=== PATIENT | male | born 1975 | race Caucasian/White ===

== ENCOUNTER 2016-12-10 21:13 | Day surgery (SDC) | payer OTHER ==
[~2016-12-10] VITALS: Ht 175.3 cm; Wt 93.9 kg
[~2016-12-10 21:13] MED LIST: ACHD5005 PO; CEPH500C PO; HYOS0.1217 PO; ONDAN4ODT PO; TRAM100T2 PO; TRAZ150T42 PO
[2016-12-10] MEDS ORDERED: METOPROLOL (22:19)
[2016-12-10] MEDS ORDERED: BUSPAR (22:19)
[2016-12-10 22:39] LABS: BILIRUBIN,URINE NEGATIVE (NEGATIVE); KETONES,URINE NEGATIVE (NEGATIVE); LEUKOCYTE ESTERASE ,URINE NEGATIVE (NEGATIVE); NITRITE,URINE NEGATIVE (NEGATIVE); PH,URINE 5 (5-9); PROTEIN,URINE NEGATIVE (NEGATIVE); UROBILINOGEN,URINE NORMAL (NORMAL)
[2016-12-10 22:48] LABS: WBC,URINE RARE /HPF
[2016-12-10 22:48] LABS: BASOPHILS % (AUTO) 0 % (0-10); EOSINOPHILS % (AUTO) 0 % (0-10); LYMPHOCYTES # (AUTO) 1.9 X 10^3 (1.0-4.0); LYMPHOCYTES % (AUTO) 15 % (12-44); MEAN CORPUSCULAR HEMOGLOBIN 31 PG (25-34); MEAN CORPUSCULAR HGB CONC 36 G/DL (32-36); MEAN CORPUSCULAR VOLUME 86 FL (80-99); MONOCYTES # (AUTO) 1.1 X 10^3 (0.0-1.0); MONOCYTES % (AUTO) 9 % (0-12); NEUTROPHILS # (AUTO) 9.3 X 10^3 (1.8-7.8); NEUTROPHILS % (AUTO) 75 % (42-75); PLATELET COUNT 213 10^3/uL (130-400); RED CELL DISTRIBUTION WIDTH 13.2 % (10.0-14.5); WHITE BLOOD COUNT 12.4 10^3/uL (4.3-11.0)
--- NOTE | 2016-12-10 22:53 | ED GU-Male ---
General Chief Complaint: Abdominal/GI Problems Stated Complaint: STOMACH PAIN Nursing Triage Note: PT TO ED 8 W/ C/O UMBILICAL PAIN RADIATING TO RLQ ONSET X2-3 DAYS, WORSE TODAY. DENIES N/V/D Source: patient Exam Limitations: no limitations History of Present Illness Time seen by provider: 22:53 Initial Comments 41-year-old male patient presents to the emergency department complaints of right lower quadrant pain with onset 2-3 days ago. Reports initially pain began as periumbilical pain. Worse today. Denies nausea, vomiting, diarrhea, melena, hematochezia. Denies fever or chills. NPO since 1999. Timing/Duration: getting worse, other (2-3 day onset) Severity/Quality: aching Location: RLQ Radiation: none Activities at Onset: none Prior Genitourinary Problems: none Sexual Tavares History: less than 2 months ago, single partner Modifying Factors: Worsens With Movement, Worsens With Palpation Allergies and Home Medications Allergies Coded Allergies: No Known Drug Allergies (Unverified , 11/05/11) Home Medications Buspirone HCl 15 Mg Tablet, 15 MG PO BID, (Reported) Docusate Sodium 100 Mg Capsule, 100 MG PO BID, #60 Prescribed by: YUKI SIERRA on 12/11/16 1026 Hydrocodone/Acetaminophen 1 Each Tablet, 1 TAB PO Q4H PRN, #30 Ref 0 Prescribed by: YUKI SIERRA on 12/11/16 1026 Metoprolol Succinate 25 Mg Tab.er.24h, 12.5 MG PO HS, (Reported) TAKES 1/2 (25MG) TABLET [place] 3 Polyunsat Fatty Acids 1,000 Mg Cap, 1,000 MG PO BID, (Reported) Trazodone HCl 100 Mg Tablet, 100 MG PO HS, (Reported) Constitutional: No chills, No fever, No malaise Respiratory: no symptoms reported Cardiovascular: no symptoms reported Gastrointestinal: RLQ, see HPI, abdominal pain (RLQ), No constipation, No diarrhea, loss of appetite, No nausea, No vomiting Genitourinary: denies burning, denies discharge, denies dysuria, denies frequency, denies flank pain, denies pain Musculoskeletal: no symptoms reported Skin: no symptoms reported Psychiatric/Neurological: No Symptoms Reported All Other Systemes Reviewed Negative Unless Noted: Yes (Negative excepted noted.) Past Biqevpw-Vpogfv-Ahfafj Hx Patient Social History Alcohol Use: Denies Use Recreational Drug Use: No Smoking Status: Never a Smoker Recent Foreign Travel: No Contact w/Someone Who Travel: No Recent Infectious Disease Expo: No Recent Hopitalizations: No Immunizations Up To Date Date of Influenza Vaccine: Jun 15, 2011 Surgeries HX Surgeries: Yes (carpal tunnel, PARTIAL FINGER AMPUTATION) Respiratory Hx Respiratory Disorders: No Cardiovascular Hx Cardiac Disorders: No Neurological Hx Neurological Disorders: No Genitourinary Hx Genitourinary Disorders: No Gastrointestinal Hx Gastrointestinal Disorders: No Musculoskeletal Hx Musculoskeletal Disorders: No Endocrine Hx Endocrine Disorders: No Cancer Hx Cancer: No Psychosocial Hx Psychiatric Problems: Yes Behavioral Health Disorders: Sleep Difficulties, Anxiety Integumentary HX Skin/Integumentary Disorder: No Blood Transfusions Hx Blood Disorders: No Reviewed Nursing Assessment Reviewed/Agree w Nursing PMH: Yes Family Medical History Significant Family History: No Pertinent Family Hx Physical Exam Vital Signs Vital Sign - Last 12Hours 12/10/16 22:08 Temp 97.2 Pulse 78 Resp 20 B/P (MAP) 118/86 Pulse Ox 97 O2 Delivery Room Air Capillary Refill : Less Than 3 Seconds General Appearance: WD/WN, no apparent distress HEENT: PERRL/EOMI, pharynx normal Neck: supple, normal inspection Cardiovascular: normal peripheral pulses, regular rate, rhythm, no murmur Respiratory: lungs clear, normal breath sounds, no respiratory distress Gastrointestinal: normal bowel sounds, soft, no organomegaly, No distended, guarding (RLQ), rebound (RLQ), tenderness (RLQ), other ((+) rovsing sign.) Back: normal inspection, no CVA tenderness Extremities: no pedal edema, normal capillary refill Neurologic/Psychiatric: alert, normal mood/affect, oriented x 3 Skin: normal color, warm/dry Progress/Results/Core Measures Results/Orders Lab Results Laboratory Tests Test 12/10/16 22:30 12/10/16 22:41 Range/Units Urine Color YELLOW Urine Clarity CLEAR Urine pH 5 5-9 Urine Specific [place] 1.025 H 1.016-1.022 Urine Protein NEGATIVE NEGATIVE Urine Glucose (UA) NEGATIVE NEGATIVE Urine Ketones NEGATIVE NEGATIVE Urine Nitrite NEGATIVE NEGATIVE Urine Bilirubin NEGATIVE NEGATIVE Urine Urobilinogen NORMAL NORMAL MG/DL Urine Leukocyte Esterase NEGATIVE NEGATIVE Urine RBC (Auto) 1+ H NEGATIVE Urine RBC 0-2 /HPF Urine WBC RARE /HPF Urine Crystals NONE /LPF Urine Bacteria NONE /HPF Urine Casts NONE /LPF Urine Mucus NEGATIVE /LPF Urine Culture Indicated NO White Blood Count 12.4 H 4.3-11.0 10^3/uL Red Blood Count 5.00 4.35-5.85 10^6/uL Hemoglobin 15.7 13.3-17.7 G/DL Hematocrit 43 40-54 % Mean Corpuscular Volume 86 80-99 FL Mean Corpuscular Hemoglobin 31 25-34 PG Mean Corpuscular Hemoglobin Concent 36 32-36 G/DL Red Cell Distribution Width 13.2 10.0-14.5 % Platelet Count 213 130-400 10^3/uL Mean Platelet Volume 9.0 7.4-10.4 FL Neutrophils (%) (Auto) 75 42-75 % Lymphocytes (%) (Auto) 15 12-44 % Monocytes (%) (Auto) 9 0-12 % Eosinophils (%) (Auto) 0 0-10 % Basophils (%) (Auto) 0 0-10 % Neutrophils # (Auto) 9.3 H 1.8-7.8 X 10^3 Lymphocytes # (Auto) 1.9 1.0-4.0 X 10^3 Monocytes # (Auto) 1.1 H 0.0-1.0 X 10^3 Eosinophils # (Auto) 0.0 0.0-0.3 10^3/uL Basophils # (Auto) 0.0 0.0-0.1 10^3/uL My Orders Orders - MURTAZA BENOIT Saline Lock/Iv-Start (12/10/16 22:33) Cbc With Automated Diff (12/10/16 22:33) Comprehensive Metabolic Panel (12/10/16 22:33) Hs C Reactive Protein (12/10/16 22:33) Ua Culture If Indicated (12/10/16 22:33) Vital Signs/I&O Vital Sign - Last 12Hours 12/10/16 22:08 Temp 97.2 Pulse 78 Resp 20 B/P (MAP) 118/86 Pulse Ox 97 O2 Delivery Room Air Blood Pressure Mean: 97 Diagnostic Imaging Diagonstic Imaging: CT Plain Films/CT/US/NM/MRI: abdomen, pelvis Comments the proximal appendix is enlarged (8 mm) with surrounding inflammatory change. Findings are concerning for acute appendicitis. No free air. No fluid collections. Reviewed: Other ([facility] report reviewed.) Departure Communication Time/Spoke to Admitting Phy: 00:[address] Sierra accepts patient to his surgical service for upper scopic appendectomy in the a.m. Request patient to be started on Zosyn 4.5 g every 6 hours IV. Progress Notes All laboratory findings, diagnostic study findings, plan for admission discussed with the patient. Patient voices understanding and agrees with the treatment plan. Dr. Guido notified of plan for admission for acute appendicitis. Impression Impression: Primary Impression: Acute appendicitis Qualified Codes: K35.80 - Unspecified acute appendicitis Additional Impression: RLQ abdominal pain Disposition: ADMITTED INPATIENT Condition: Stable Decision to Admit Reason: Admit from ER (General) Decision to Admit/Date: Dec 11, 2016 Time/Decision to Admit Time: 00:10 Departure-Patient Inst. Referrals: BETTE ROBERTS MD (PCP/Family) Primary Care Physician Scripts Hydrocodone/Acetaminophen (Hydrocodon -Acetaminophen 5-325) 1 Each Tablet 1 TAB PO Q4H Y, #30 TAB 0 Refills Prov: YUKI SIERRA DO 12/11/16 Docusate Sodium (Colace) 100 Mg Capsule 100 MG PO BID, #60 CAP Prov: YUKI SIERRA DO 12/11/16 MURTAZA BENOIT Dec 10, 2016 22:53
[2016-12-10] MEDS ORDERED: NS IV 1000 ML 1,000 ML IV ONE (23:07)
[2016-12-10 23:13] LABS: ALANINE AMINOTRANSFERASE 28 U/L (0-55); ALBUMIN 4.4 G/DL (3.2-4.5); ANION GAP 9 MMOL/L (5-14); ASPARTATE AMINO TRANSFERASE 20 U/L (5-34); BILIRUBIN,TOTAL 0.5 MG/DL (0.1-1.0); BLOOD UREA NITROGEN 18 MG/DL (7-18); BUN/CREATININE RATIO 22; CALCIUM 9.6 MG/DL (8.5-10.1); CARBON DIOXIDE 26 MMOL/L (21-32); CHLORIDE 104 MMOL/L (98-107); CREATININE SERUM 0.83 MG/DL (0.60-1.30); GFR ESTIMATED > 60; GLUCOSE 87 MG/DL (70-105); POTASSIUM 3.7 MMOL/L (3.6-5.0); SODIUM 139 MMOL/L (135-145); TOTAL PROTEIN 7.4 G/DL (6.4-8.2); hs C REACTIVE PROTEIN 1.44 MG/DL (0.00-0.50)
[2016-12-10] MEDS ORDERED: IOHEXOL 350 MG/ML 100 ML (OMNIPAQUE 350) VIAL IV ONE (23:15)
[2016-12-10] MEDS ORDERED: NS 100 ML (IVPB) BAG IV ONE (23:15)
[2016-12-10] MEDS ORDERED: fentaNYL INJECTION 100 MCG/2 ML AMP IVP STA (23:54)
[2016-12-11] MEDS ORDERED: PIPERACILLIN/TAZO 4.5 GM VIAL (ZOSYN) IV ONE ×2 (00:15→00:20)
[2016-12-11] MEDS ORDERED: NS (IVPB) 100 ML ONE (00:20)
[2016-12-11 01:00] VITALS: BP 117/82
[2016-12-11] MEDS: NS IV 1000 ML 1,000 ML ONE ×2 (01:42→02:49)
[2016-12-11] MEDS: NS IV 1000 ML 1,000 ML IV SCH ×2 (01:42→16:05)
[2016-12-11] MEDS ORDERED: morphine INJ 4 MG/ML 1 ML (VIAL/SYRINGE) ONE (01:57)
[2016-12-11] MEDS ORDERED: ACETAMINOPHEN 500 MG TAB (TYLENOL) PO PRN (02:45)
[2016-12-11] MEDS: FAMOTIDINE 20MG/2ML IV (PEPCID) IVP SCH ×2 (02:54→08:33)
[2016-12-11] MEDS ORDERED: BUSP15TA60 PO (03:08)
[2016-12-11] MEDS ORDERED: METO-270 PO (03:10)
[2016-12-11] MEDS ORDERED: TRAZ100T92 PO (03:21)
[2016-12-11 04:00] VITALS: BP 111/64
[2016-12-11] MEDS ORDERED: PIPERACILLIN/TAZOBACTAM 4.5 GM/NS100 ML IVPB IV SCH ×4 (06:00→14:00)
[2016-12-11] MEDS: morphine INJ 4 MG/ML 1 ML (VIAL/SYRINGE) IV PRN ×2 (06:08→13:30)
[2016-12-11 06:19] LABS: BASOPHILS % (AUTO) 0 % (0-10); EOSINOPHILS # (AUTO) 0.1 10^3/uL (0.0-0.3); EOSINOPHILS % (AUTO) 2 % (0-10); LYMPHOCYTES # (AUTO) 2.1 X 10^3 (1.0-4.0); LYMPHOCYTES % (AUTO) 28 % (12-44); MEAN CORPUSCULAR HEMOGLOBIN 31 PG (25-34); MEAN CORPUSCULAR HGB CONC 36 G/DL (32-36); MEAN CORPUSCULAR VOLUME 87 FL (80-99); MEAN PLATELET VOLUME 9.3 FL (7.4-10.4); MONOCYTES # (AUTO) 0.6 X 10^3 (0.0-1.0); MONOCYTES % (AUTO) 9 % (0-12); NEUTROPHILS # (AUTO) 4.5 X 10^3 (1.8-7.8); NEUTROPHILS % (AUTO) 61 % (42-75); PLATELET COUNT 189 10^3/uL (130-400); RED BLOOD COUNT 4.51 10^6/uL (4.35-5.85); RED CELL DISTRIBUTION WIDTH 13.2 % (10.0-14.5); WHITE BLOOD COUNT 7.3 10^3/uL (4.3-11.0)
[2016-12-11 06:37] LABS: ALANINE AMINOTRANSFERASE 22 U/L (0-55); ALBUMIN 3.8 G/DL (3.2-4.5); ANION GAP 6 MMOL/L (5-14); ASPARTATE AMINO TRANSFERASE 15 U/L (5-34); BILIRUBIN,TOTAL 0.7 MG/DL (0.1-1.0); BLOOD UREA NITROGEN 13 MG/DL (7-18); BUN/CREATININE RATIO 17; CALCIUM 8.4 MG/DL (8.5-10.1); CARBON DIOXIDE 25 MMOL/L (21-32); CHLORIDE 109 MMOL/L (98-107); CREATININE SERUM 0.77 MG/DL (0.60-1.30); GFR ESTIMATED > 60; GLUCOSE 84 MG/DL (70-105); POTASSIUM 3.9 MMOL/L (3.6-5.0); SODIUM 140 MMOL/L (135-145); TOTAL PROTEIN 6.1 G/DL (6.4-8.2)
--- NOTE | 2016-12-11 07:21 | Diagnostic Imaging Report ---
PROCEDURE: CT abdomen and pelvis with contrast, rule out appendicitis. TECHNIQUE: Multiple contiguous axial images were obtained through the abdomen and pelvis after the administration of intravenous contrast. INDICATION: Abdominal pain. FINDINGS: Examination demonstrates the appendix to be enlarged measuring 8 mm. There is some fat stranding around the appendix. No ascites, loculated fluid collections or free air present. Bowel loops appear normal. No visceral abnormalities are present. The gallbladder is contracted and cannot be well evaluated. Vascular structures appear normal. No hernias are present. The osseous structures appear normal. IMPRESSION: Acute appendicitis. Findings agree with [facility] report. Dictated by: Dictated on workstation # [id number]
--- NOTE | 2016-12-11 07:35 | History & Physical-Surgical ---
History of Present Illness History of Present Illness Reason for visit/HPI CC: RLQ abdominal pain. Patient 41 year old male having 2-3 days of pain around umbilicus. Yesterday pain then moved to the right lower quadrant. Pain sharp. At worst the pain was 9/10. Patient states not having any fever sweats chills shortness of breath or chest pain. Last ate last evening. Had ct scan suggestive of acute appendicitis. Date of Admission Dec 11, 2016 at 00:22 I consulted on this patient on 12/11/16 07:28 Attending Physician Yuki Israel DO Admitting Physician Edilson Ann MD Consult Allergies and Home Medications Allergies Coded Allergies: No Known Drug Allergies (Unverified , 11/05/11) Home Medications Buspirone HCl 15 Mg Tablet, 15 MG PO BID, (Reported) Metoprolol Succinate 25 Mg Tab.er.24h, 12.5 MG PO HS, (Reported) Trazodone HCl 100 Mg Tablet, 100 MG PO HS, (Reported) Past Xlbgewh-Oxtlgt-Uvrsno Hx Patient Social History Alcohol Use: Denies Use Recreational Drug Use: No Smoking Status: Never a Smoker Recent Foreign Travel: No Contact w/Someone Who Travel: No Recent Infectious Disease Expo: No Recent Hopitalizations: No Physical Abuse Screen: No Sexual Abuse: No Immunizations Up To Date Date of Influenza Vaccine: Jun 15, 2011 Seasonal Allergies Seasonal Allergies: No Surgeries HX Surgeries: Yes (carpal tunnel, PARTIAL FINGER AMPUTATION) Respiratory Hx Respiratory Disorders: No Cardiovascular Hx Cardiac Disorders: No Neurological Hx Neurological Disorders: No Genitourinary Hx Genitourinary Disorders: No Gastrointestinal Hx Gastrointestinal Disorders: No Musculoskeletal Hx Musculoskeletal Disorders: No Endocrine Hx Endocrine Disorders: No Cancer Hx Cancer: No Psychosocial Hx Psychiatric Problems: Yes Behavioral Health Disorders: Sleep Difficulties, Anxiety Integumentary HX Skin/Integumentary Disorder: No Blood Transfusions Hx Blood Disorders: No Family Medical History Significant Family History: No Pertinent Family Hx Family Medial History: Diabetes mellitus 19 MOTHER FH: bipolar disorder 19 MOTHER Constitutional: no symptoms reported EENTM: no symptoms reported Respiratory: no symptoms reported Cardiovascular: no symptoms reported Gastrointestinal: see HPI Genitourinary: no symptoms reported Musculoskeletal: no symptoms reported Skin: no symptoms reported Psychiatric/Neurological: No Symptoms Reported Physical Exam Vital Signs Vital Sign - Last 12Hours 12/10/16 22:08 Temp 97.2 Pulse 78 Resp 20 B/P (MAP) 118/86 Pulse Ox 97 O2 Delivery Room Air Capillary Refill : Less Than 3 Seconds General Appearance: No Apparent Distress HEENT: PERRL/EOMI, Normal ENT Inspection Neck: Supple Respiratory: Lungs Clear Cardiovascular: Regular Rate, Rhythm Gastrointestinal: Tenderness (right lower quadrant) Rectal: Deferred Back: Normal Inspection Extremity: Non Tender Neurologic/Psychiatric: Alert, Oriented x3 Skin: Warm/Dry Data Review Labs Laboratory Tests 12/10/16 22:30: Urine Color YELLOW, Urine Clarity CLEAR, Urine pH 5, Urine Specific [place] 1.025H, Urine Protein NEGATIVE, Urine Glucose (UA) NEGATIVE, Urine Ketones NEGATIVE, Urine Nitrite NEGATIVE, Urine Bilirubin NEGATIVE, Urine Urobilinogen NORMAL, Urine Leukocyte Esterase NEGATIVE, Urine RBC (Auto) 1+H, Urine RBC 0-2, Urine WBC RARE, Urine Crystals NONE, Urine Bacteria NONE, Urine Casts NONE, Urine Mucus NEGATIVE, Urine Culture Indicated NO 12/10/16 22:41: White Blood Count 12.4H, Red Blood Count 5.00, Hemoglobin 15.7, Hematocrit 43, Mean Corpuscular Volume 86, Mean Corpuscular Hemoglobin 31, Mean Corpuscular Hemoglobin Concent 36, Red Cell Distribution Width 13.2, Platelet Count 213, Mean Platelet Volume 9.0, Neutrophils (%) (Auto) 75, Lymphocytes (%) (Auto) 15, Monocytes (%) (Auto) 9, Eosinophils (%) (Auto) 0, Basophils (%) (Auto) 0, Neutrophils # (Auto) 9.3H, Lymphocytes # (Auto) 1.9, Monocytes # (Auto) 1.1H, Eosinophils # (Auto) 0.0, Basophils # (Auto) 0.0, Sodium Level 139, Potassium Level 3.7, Chloride Level 104, Carbon Dioxide Level 26, Anion Gap 9, Blood Urea Nitrogen 18, Creatinine 0.83, Estimat Glomerular Filtration Rate > 60, BUN/ Creatinine Ratio 22, Glucose Level 87, Calcium Level 9.6, Total Bilirubin 0.5, Aspartate Amino Transf (AST/SGOT) 20, Alanine Aminotransferase (ALT/SGPT) 28, Alkaline Phosphatase 65, C-Reactive Protein High Sensitivity 1.44H, Total Protein 7.4, Albumin 4.4 12/11/16 05:50: White Blood Count 7.3, Red Blood Count 4.51, Hemoglobin 14.0, Hematocrit 39L, Mean Corpuscular Volume 87, Mean Corpuscular Hemoglobin 31, Mean Corpuscular Hemoglobin Concent 36, Red Cell Distribution Width 13.2, Platelet Count 189, Mean Platelet Volume 9.3, Neutrophils (%) (Auto) 61, Lymphocytes (%) (Auto) 28, Monocytes (%) (Auto) 9, Eosinophils (%) (Auto) 2, Basophils (%) (Auto) 0, Neutrophils # (Auto) 4.5, Lymphocytes # (Auto) 2.1, Monocytes # (Auto) 0.6, Eosinophils # (Auto) 0.1, Basophils # (Auto) 0.0, Sodium Level 140, Potassium Level 3.9, Chloride Level 109H, Carbon Dioxide Level 25, Anion Gap 6, Blood Urea Nitrogen 13, Creatinine 0.77, Estimat Glomerular Filtration Rate > 60, BUN/ Creatinine Ratio 17, Glucose Level 84, Calcium Level 8.4L, Total Bilirubin 0.7, Aspartate Amino Transf (AST/SGOT) 15, Alanine Aminotransferase (ALT/SGPT) 22, Alkaline Phosphatase 59, Total Protein 6.1L, Albumin 3.8 Assessment/Plan Assessment/Plan Assessment/Plan right lower quadrant pain, acute appendicitis on Zosyn NPO IV hydration discussed risk and benefits of laparoscopic appendectomy all other indicated procedures patient agrees with surgical intervention to OR Clinical Quality Measures DVT/VTE Risk/Contraindication: Risk Factor Score Per Nursin RFS Level Per Nursing on Admit: 1=Low/No VTE PPX YUKI ISRAEL DO Dec 11, 2016 07:35
[2016-12-11 08:00] VITALS: BP 123/62
[2016-12-11] MEDS ORDERED: FLU TRIvalent (5 YOA+) 2016-17 (AFLURIA) 0.5 ML IM ONE (08:15)
[2016-12-11] MEDS ORDERED: OMG1KC PO (08:39)
[2016-12-11] MEDS ORDERED: fentaNYL INJECTION 100 MCG/2 ML AMP ONE (08:45)
[2016-12-11] MEDS ORDERED: MIDAZOLAM 2 MG/2 ML (VERSED) VIAL ONE (08:45)
[2016-12-11] MEDS ORDERED: proPOfol 200 MG/20 ML (DIPRIVAN) VIAL IV ONE (08:46)
[2016-12-11] MEDS ORDERED: ROCURONIUM 50 MG/5 ML (ZEMURON) VIAL IV ONE (08:46)
[2016-12-11] MEDS ORDERED: LACTATED RINGERS 1,000 ML IV ONE (08:46)
[2016-12-11] MEDS ORDERED: ONDANSETRON 4 MG/2 ML (SDV) Z0FRAN ONE (08:46)
[2016-12-11] MEDS ORDERED: LIDOCAINE PF 2% 10 ML (XYLOCAINE) AMP ONE (08:46)
[2016-12-11] MEDS ORDERED: FAMOTIDINE 20MG/2ML IV (PEPCID) ONE (09:06)
[2016-12-11] MEDS: LIDOCAINE 1% INJ 20 ML (XYLOCAINE) VIAL ONE ×2 (09:41→10:09)
[2016-12-11] MEDS: BUPIVACAINE 0.5% 30 ML (SENSORCAINE) VIAL ONE ×2 (09:41→10:09)
[2016-12-11] MEDS ORDERED: ESMOLOL 100 MG/10 ML (BREVIBLOC) VIAL ONE (09:45)
[2016-12-11] MEDS: LACTATED RINGERS 1,000 ML IV PRN (09:55)
[2016-12-11] MEDS ORDERED: ONDANSETRON 4 MG/2 ML (SDV) Z0FRAN IVP PRN (10:00)
[2016-12-11] MEDS ORDERED: HYDROmorphone (DILAUDID) 2 MG/ML VIAL IVP PRN (10:00)
[2016-12-11] MEDS ORDERED: MEPERIDINE (DEMEROL) INJ 50 MG/ML IVP PRN (10:00)
[2016-12-11] MEDS ORDERED: NEOSTIGMINE (BLOXIVERZ ) 1 MG/1ML 10 ML VIAL ONE (10:05)
[2016-12-11] MEDS ORDERED: GLYCOPYRROLATE 0.2 MG/ML (ROBINUL) 2 ML VIAL ONE (10:05)
[2016-12-11] MEDS ORDERED: SEVOFLURANE (ULTANE) 15 ML INHAL SOLN ONE (10:15)
[2016-12-11] MEDS ORDERED: HYDR-3812 PO (10:26)
[2016-12-11] MEDS ORDERED: DOCU-143 PO (10:26)
--- NOTE | 2016-12-11 10:28 | Discharge Inst-Simple/Standard ---
Discharge Inst-Standard Discharge Medications New, Converted or Re-Newed RX: RX on Chart Patient Instructions/Follow Up Plan of Care/Instructions/FU: 2 weeks [place] Activity as Tolerated: No Discharge Diet: Regular Diet Other Inst to Patient Follow up Appt: Make appointment for 2 week. Instructions: No lifting greater than 10 pounds. No strenuous activity. May shower in 24 hours, no tub bath or soaking. Use incentive spirometer at home as directed. No Smoking Skin/Wound Care: May remove bandages in 24 hours. You need to leave the white strips over incision on they will fall off on their own. Symptoms to Report: Appetite Changes, Extremity Discoloration, Numbness/Tingling, Swelling Increased , Bleeding Excessive, Eyesight Changes, Pain Increased, Urine Color Change, Constipation(Persistent), Fever over 101 degree F, Pain/Pressure in chest, Urinating Difficulty, Cough Up/Vomit Blood, Heart Beat Irreg/Pounding, Pain/ Pressure in jaw, Vaginal Bleeding Increase, Cramps in feet or legs, Lightheadedness, Pain/Pressure in shoulder, Diarrhea(Persistent), Memory Changes Suddenly, Questions/Concerns, Weight gain consecutive days, Dizziness/ Fainting, Nausea/Vomiting, Shortness of Breath, Weight gain over 2 pounds If questions or concerns contact your physician Or seek help at emergency department. YUKI SIERRA DO Dec 11, 2016 10:28
[2016-12-11] MEDS ORDERED: HYDROcodone/APAP 5 MG/325 MG (LORTAB) TAB PO PRN (10:30)
[2016-12-11] MEDS ORDERED: PIPERACILLIN SODIUM/TAZOBACTAM 4.5 GM in NS (IVPB) 100 ML IV SCH (10:30)
[2016-12-11] MEDS: morphine INJ 10 MG/ML 1ML (SYR OR VIAL) IVP PRN ×2 (10:42→10:49)
[2016-12-11] MEDS ORDERED: MEPERIDINE (DEMEROL) INJ 50 MG/ML ONE (10:55)
[2016-12-11 12:00] VITALS: BP 115/80
[2016-12-11] MEDS: ONDANSETRON 4 MG/2 ML (SDV) Z0FRAN IV PRN ×2 (13:30→16:29)
[2016-12-11 17:00] VITALS: BP 115/80
--- NOTE | 2016-12-11 17:19 | Progress Note-Post Operative ---
Post-Operative Progess Note Surgeon (s)/Renovation Plant Supervisor (s) Surgeon YUKI SIERRA DO Renovation Plant Supervisor: none Pre-Operative Diagnosis acute appendicitis, rlq abdominal pain Post-Operative Diagnosis same Post-Op Procedure Note Date of Procedure: Dec 11, 2016 Name of Procedure Performed: laparoscopic appendectomy Description of the Procedure: see note Findings of the Procedure see note Anesthesia Type general Estimated blood loss (mL): minimal Specimen(s) collected/removed appendix YUKI SIERRA DO Dec 11, 2016 5:19 pm
[2016-12-12] MEDS: LACTATED RINGERS 1,000 ML IV PRN (08:55)
--- NOTE | 2016-12-12 14:22 | OPERATIVE REPORT ---
PROCEDURE PHYSICIAN: YUKI SIERRA DATE OF PROCEDURE: 12/11/2016 PREOPERATIVE DIAGNOSIS: Acute appendicitis, right lower quadrant abdominal pain. POSTOPERATIVE DIAGNOSIS: Acute appendicitis, right lower quadrant abdominal pain. PROCEDURE: Laparoscopic appendectomy. SURGEON: Lindy. ANESTHESIA: General. ESTIMATED BLOOD LOSS: Minimal. COMPLICATIONS: None. INDICATIONS: The patient is a 41-year-old male who presented to the emergency department with having a couple days of periumbilical pain which then began to have right lower quadrant pain. He was evaluated in the emergency department and had a CT scan performed and lab work that was consistent with acute appendicitis. The patient was explained risk and benefits of procedure and wished to proceed with procedure. Consent was signed on the chart. PROCEDURE: The patient was taken to the operating suite. He was prepped and draped in the sterile fashion. A surgical pause was performed. A 5 mm incision was made at the umbilicus. Princess was used to dissect down to the fascia, grasped and elevated. Veress needle was inserted in the abdomen and pneumoperitoneum was achieved. Under direct visualization of the laparoscope, a 5 mm trocar was then placed. Under direct visualization of the laparoscope, a 5 mm trocar was placed in the suprapubic region and a 12 mm trocar was placed in the left lower quadrant. The appendix was located. It was erythematous and slightly rigid with some surrounding inflammation. There is no evidence of perforation. A [place] was then used to dissect around the base of the appendix. An Endo PORFIRIO 2.5 stapler was then fired across the base of the appendix. A 2.0 reload was then fired across the mesoappendix. This was placed in an Endobag and removed through the 12 mm trocar site. The abdomen was then irrigated with copious amounts of irrigation. Hemostasis had been achieved. The staple lines were intact. The 12 mm fascial defect was then closed using 0 Vicryl with Endo Close. The abdomen was then desufflated. The trocars were removed. A total of 20 mL of 0.5% Marcaine 1% lidocaine at a 50:50 ratio was used to anesthetize the trocar sites. The skin was then closed using 4-0 Monocryl in a subcuticular fashion. The areas were then washed and dried. Mastisol and Steri-Strips were applied and sterile bandages were applied. The patient tolerated the procedure well without any complications. He was taken to recovery room in stable condition. Job ID: [id number] Dictated Date: 12/11/2016 17:22:29 Blindstitch Hemmer Date: 12/12/2016 14:16:13 / rico
--- OUTSIDE RECORDS SUMMARY | 2016-12-29 05:16 | XMS REPORT ---
Author Author BETTE ROBERTS [facility] eClinicalWorks Address Unknown Phone Unavailable Care Team Providers Care Milking Machine Technician Name Role Phone BETTE ROBERTS CP Unavailable Allergies, Adverse Reactions, Alerts Substance Reaction Event Type N.K.D.A. Info Not Available Non Drug Allergy Problems Problem Type Condition Code Onset Dates Condition Status Problem Alcohol abuse F10.10 Active Problem Depression F32.9 Active Problem Generalized anxiety disorder F41.1 Active Assessment Depression F32.9 Active Assessment Generalized anxiety disorder F41.1 Active Medications Medication Code System Code Instructions Start Date End Date Status Dosage BusPIRone HCl [facility] [address]-24 15 MG Orally Twice a day May 13, 2016 1 tablet Metoprolol Succinate ER [facility] [address]-72 25 MG Orally Once a day 1 tablet Trazodone HCl [facility] [address]-68 100 MG Orally Once a day, hs 2 Procedures Procedure Coding System Code Date Office Visit, Est Pt., Level 2 CPT-4 91427 Jul 12, 2016 Vital Signs Date/Time: Jul 12, 2016 Cardiac Monitoring Heart Rate 84 bpm Weight 221 lbs Height 69 in BMI 32.63 Index Blood Pressure Diastolic 80 mmHg Blood Pressure Systolic 106 mmHg Results No Known Results Summary Purpose eClinicalWorks Submission
--- OUTSIDE RECORDS SUMMARY | 2016-12-29 05:16 | XMS REPORT ---
Author Author BETTE ROBERTS Organization e[employer] Address Unknown Phone Unavailable Care Team Providers Care Gamb Cutter Name Role Phone BETTE ROBERTS CP Unavailable Allergies No Known Allergies Problems Problem Type Condition Code Onset Dates Condition Status Problem Alcohol abuse F10.10 Active Problem Depression F32.9 Active Problem Generalized anxiety disorder F41.1 Active Medications No Known Medications Results No Known Results Summary Purpose eClinicalWorks Submission
--- OUTSIDE RECORDS SUMMARY | 2016-12-29 05:16 | XMS REPORT ---
Author Author BETTE ROBERTS [facility] eClinicalWorks Address Unknown Phone Unavailable Care Team Providers Care Executive Director Name Role Phone BETTE ROBERTS CP Unavailable Allergies, Adverse Reactions, Alerts Substance Reaction Event Type N.K.D.A. Info Not Available Non Drug Allergy Problems Problem Type Condition Code Onset Dates Condition Status Assessment Family history of diabetes mellitus (DM) Z83.3 Active Assessment Depression F32.9 Active Problem Depression F32.9 Active Medications Medication Code System Code Instructions Start Date End Date Status Dosage Metoprolol Succinate ER [facility] [address]-49 25 MG Orally Once a day 1 tablet Trazodone HCl [facility] [address]-45 100 MG Orally Once a day 1 tablet at bedtime as needed Procedures Procedure Coding System Code Date Office Visit, Est Pt., Level 2 CPT-4 20521 April 01, 2016 GLYCATED HEMOGLOBIN TEST CPT-4 69662 April 01, 2016 Vital Signs Date/Time: April 01, 2016 Cardiac Monitoring Heart Rate 88 bpm Weight 224.7 lbs Height 69 in Blood Pressure Diastolic 88 mmHg Blood Pressure Systolic 128 mmHg Results No Known Results Summary Purpose eClinicalWorks Submission
--- OUTSIDE RECORDS SUMMARY | 2016-12-29 05:16 | XMS REPORT ---
Author Author BETTE ROBERTS Organization e[employer] Address Unknown Phone Unavailable Care Team Providers Care Light Rail Signal Technician Name Role Phone BETTE ROBERTS CP Unavailable Allergies No Known Allergies Problems Problem Type Condition Code Onset Dates Condition Status Problem Depression F32.9 Active Medications No Known Medications Results No Known Results Summary Purpose eClinicalWorks Submission
--- OUTSIDE RECORDS SUMMARY | 2016-12-29 05:17 | XMS REPORT | Continuity of Care Document ---
Author Author [facility] Organization [facility] Address Unknown Phone Unavailable Allergies Active Description Code Type Severity Reaction Onset Reported/Identified Relationship to Patient Clinical Status Yes No Known Drug Allergies [id number] Drug Allergy Unknown N/ A 11/05/2011 Medications Problems Date Dx Coded Attending Type Code Diagnosis Diagnosed By 11/12/2011 Ot 354.0 CARPAL TUNNEL SYNDROME 11/14/2011 Ot 682.6 CELLULITIS OF LEG 11/14/2011 Ot 729.5 PAIN IN LIMB 12/13/2012 Ot 558.9 NONINF GASTROENTERIT NEC 12/13/2012 Ot 789.07 ABDOMINAL PAIN, GENERALIZED 08/11/2013 EDWARD JOHNSON, ALEXANDRE Jackson Ot 785.1 PALPITATIONS 01/29/2015 Ot 354.0 01/29/2015 Ot V72.63 01/29/2015 Ot V74.8 01/29/2015 ROOSEVELT BELLO MD Ot 527.2 SIALOADENITIS 01/29/2015 ROOSEVELT BELLO MD Ot 784.2 SWELLING IN HEAD NECK 02/02/2015 ROOSEVELT BELLO MD Ot 527.2 02/02/2015 ROOSEVELT BELLO MD Ot 784.2 01/01/2016 HALINA VALLE MD Ot F41.9 ANXIETY DISORDER, UNSPECIFIED 01/01/2016 HALINA VALLE MD Ot R00.0 TACHYCARDIA, UNSPECIFIED 01/01/2016 HALINA VALLE MD Ot R00.2 PALPITATIONS 01/01/2016 HALINA VALLE MD Ot R07.89 OTHER CHEST PAIN 01/10/2016 HALINA VALLE MD Ot F41.9 ANXIETY DISORDER, UNSPECIFIED 01/10/2016 HALINA VALLE MD Ot R00.0 TACHYCARDIA, UNSPECIFIED 01/10/2016 HALINA VALLE MD Ot R00.2 PALPITATIONS 01/10/2016 HALINA VALLE MD Ot R07.89 OTHER CHEST PAIN 01/24/2016 TORI MD, BASHAR J Ot F41.9 ANXIETY DISORDER, UNSPECIFIED 01/24/2016 HALINA VALLE MD Ot R00.0 TACHYCARDIA, UNSPECIFIED 01/24/2016 HALINA VALLE MD Ot R00.2 PALPITATIONS 01/24/2016 HALINA VALLE MD Ot R07.89 OTHER CHEST PAIN 01/25/2016 HALINA VALLE MD Ot F41.9 ANXIETY DISORDER, UNSPECIFIED 01/25/2016 HALINA VALLE MD Ot R00.0 TACHYCARDIA, UNSPECIFIED 01/25/2016 HALINA VALLE MD Ot R00.2 PALPITATIONS 01/25/2016 HALINA VALLE MD Ot R07.89 OTHER CHEST PAIN 01/26/2016 HALINA VALLE MD Ot F41.9 ANXIETY DISORDER, UNSPECIFIED 01/26/2016 HALINA VALLE MD Ot R00.0 TACHYCARDIA, UNSPECIFIED 01/26/2016 HALINA VALLE MD Ot R00.2 PALPITATIONS 01/26/2016 HALINA VALLE MD Ot R07.89 OTHER CHEST PAIN 01/26/2016 Ot 354.0 CARPAL TUNNEL SYNDROME 01/26/2016 Ot V72.63 PRE-PROCEDURAL LABORATORY EXAMINATION 01/26/2016 Ot V74.8 SCREEN-BACTERIAL DIS NEC 01/26/2016 HALINA VALLE MD Ot F41.9 ANXIETY DISORDER, UNSPECIFIED 01/26/2016 HALINA VALLE MD Ot R00.0 TACHYCARDIA, UNSPECIFIED 01/26/2016 HALINA VALLE MD Ot R00.2 PALPITATIONS 01/26/2016 HALINA VALLE MD Ot R07.89 OTHER CHEST PAIN 02/05/2016 HALINA VALLE MD Ot F41.9 ANXIETY DISORDER, UNSPECIFIED 02/05/2016 HALINA VALLE MD Ot R00.0 TACHYCARDIA, UNSPECIFIED 02/05/2016 HALINA VALLE MD Ot R00.2 PALPITATIONS 02/05/2016 HALINA VALLE MD Ot R07.89 OTHER CHEST PAIN 02/05/2016 HALINA VALLE MD Ot F41.9 ANXIETY DISORDER, UNSPECIFIED 02/05/2016 HLAINA VALLE MD Ot R00.0 TACHYCARDIA, UNSPECIFIED 02/05/2016 HALINA VALLE MD Ot R00.2 PALPITATIONS 02/05/2016 TORI JOHNSON, HALINA Hadley Ot R07.89 OTHER CHEST PAIN 02/05/2016 TORI JOHNSON, HALINA Hadley Ot F41.9 ANXIETY DISORDER, UNSPECIFIED 02/05/2016 TORI JOHNSON, HALINA Hadley Ot R00.0 TACHYCARDIA, UNSPECIFIED 02/05/2016 TORI JOHNSON, HALINA Hadley Ot R00.2 PALPITATIONS 02/05/2016 TORI JOHNSON, HALINA Hadley Ot R07.89 OTHER CHEST PAIN 04/09/2016 ISRAEL BARKLEY Ot F41.8 OTHER SPECIFIED ANXIETY DISORDERS 04/09/2016 ISRAEL BARKLEY Ot G47.09 OTHER INSOMNIA 04/09/2016 ISRAEL BARKLEY Ot R00.2 PALPITATIONS 04/09/2016 ISRAEL BARKLEY Ot R07.89 OTHER CHEST PAIN 04/25/2016 ISRAEL BARKLEY Ot F41.8 OTHER SPECIFIED ANXIETY DISORDERS 04/25/2016 ISRAEL BARKLEY Ot G47.09 OTHER INSOMNIA 04/25/2016 ISRAEL BARKLEY Ot R00.2 PALPITATIONS 04/25/2016 ISRAEL BARKLEY Ot R07.89 OTHER CHEST PAIN 12/11/2016 Ot 354.0 CARPAL TUNNEL SYNDROME 12/11/2016 Ot V72.63 PRE-PROCEDURAL LABORATORY EXAMINATION 12/11/2016 Ot V74.8 SCREEN-BACTERIAL DIS NEC 12/11/2016 TORI JOHNSON, HALINA Hadley Ot F41.9 ANXIETY DISORDER, UNSPECIFIED 12/11/2016 TORI JOHNSON, HALINA Hadley Ot R00.0 TACHYCARDIA, UNSPECIFIED 12/11/2016 TORI JOHNSON, HALINA Hadley Ot R00.2 PALPITATIONS 12/11/2016 HALINA VALLE MD Ot R07.89 OTHER CHEST PAIN 12/11/2016 ISRAEL BARKLEY Ot F41.8 OTHER SPECIFIED ANXIETY DISORDERS 12/11/2016 ISRAEL BARKLEY Ot G47.09 OTHER INSOMNIA 12/11/2016 ISRAEL BARKLEY Ot R00.2 PALPITATIONS 12/11/2016 ISRAEL BARKLEY Ot R07.89 OTHER CHEST PAIN 12/11/2016 Ot 354.0 CARPAL TUNNEL SYNDROME 12/11/2016 Ot V72.63 PRE-PROCEDURAL LABORATORY EXAMINATION 12/11/2016 Ot V74.8 SCREEN-BACTERIAL DIS NEC 12/11/2016 HALINA VALLE MD Ot F41.9 ANXIETY DISORDER, UNSPECIFIED 12/11/2016 HALINA VALLE MD Ot R00.0 TACHYCARDIA, UNSPECIFIED 12/11/2016 HALINA VALLE MD Ot R00.2 PALPITATIONS 12/11/2016 HALINA VALLE MD Ot R07.89 OTHER CHEST PAIN 12/11/2016 ISRAEL BARKLEY Ot F41.8 OTHER SPECIFIED ANXIETY DISORDERS 12/11/2016 ISRAEL BARKLEY Ot G47.09 OTHER INSOMNIA 12/11/2016 ISRAEL BARKLEY Ot R00.2 PALPITATIONS 12/11/2016 ISRAEL BARKLEY Ot R07.89 OTHER CHEST PAIN 12/11/2016 YUKI SIERRA DO Ot K35.80 UNSPECIFIED ACUTE APPENDICITIS 12/12/2016 YUKI SIERRA DO Ot K35.80 UNSPECIFIED ACUTE APPENDICITIS 12/17/2016 YUKI SIERRA DO Ot K35.80 UNSPECIFIED ACUTE APPENDICITIS Procedures Results Test Result Range Complete urinalysis with reflex to culture - 12/10/16 22:30 Urine color determination YELLOW NRG Urine clarity determination CLEAR NRG Urine pH measurement by test strip 5 5- 9 Specific gravity of urine by test strip 1.025 1.016-1.022 Urine protein assay by test strip, semi-quantitative NEGATIVE NEGATIVE Urine glucose detection by automated test strip NEGATIVE NEGATIVE Erythrocytes detection in urine sediment by light microscopy 1+ NEGATIVE Urine ketones detection by automated test strip NEGATIVE NEGATIVE Urine nitrite detection by test strip NEGATIVE NEGATIVE Urine total bilirubin detection by test strip NEGATIVE NEGATIVE Urine urobilinogen measurement by automated test strip (mass/volume) NORMAL NORMAL Urine leukocyte esterase detection by dipstick NEGATIVE NEGATIVE Automated urine sediment erythrocyte count by microscopy (number/high power field) [HPF] NRG Automated urine sediment leukocyte count by microscopy (number/high power field ) RARE NRG Bacteria detection in urine sediment by light microscopy NONE NRG Crystals detection in urine sediment by light microscopy NONE NRG Casts detection in urine sediment by light microscopy NONE NRG Mucus detection in urine sediment by light microscopy NEGATIVE NRG Complete urinalysis with reflex to culture NO NRG Complete blood count (CBC) with automated white blood cell (WBC) differential - 12/10/16 22:41 Blood leukocytes automated count (number/volume) 12.4 10*3/ uL 4.3-11.0 Blood erythrocytes automated count (number/volume) 5.00 10*6 /uL 4.35-5.85 Venous blood hemoglobin measurement (mass/volume) 15.7 g/dL 13.3-17.7 Blood hematocrit (volume fraction) 43 % 40-54 Automated erythrocyte mean corpuscular volume 86 [foz_us] 80-99 Automated erythrocyte mean corpuscular hemoglobin (mass per erythrocyte) 31 pg 25-34 Automated erythrocyte mean corpuscular hemoglobin concentration measurement ( mass/volume) 36 g/dL 32-36 Automated erythrocyte distribution width ratio 13.2 % 10.0-14.5 Automated blood platelet count (count/volume) 213 10*3/uL 130-400 Automated blood platelet mean volume measurement 9.0 [foz_us ] 7.4-10.4 Automated blood neutrophils/100 leukocytes 75 % 42-75 Automated blood lymphocytes/100 leukocytes 15 % 12-44 Blood monocytes/100 leukocytes 9 % 0-12 Automated blood eosinophils/100 leukocytes 0 % 0-10 Automated blood basophils/100 leukocytes 0 % 0-10 Blood neutrophils automated count (number/volume) 9.3 10*3 1.8-7.8 Blood lymphocytes automated count (number/volume) 1.9 10*3 1.0-4.0 Blood monocytes automated count (number/volume) 1.1 10*3 0.0-1.0 Automated eosinophil count 0.0 10*3/uL 0.0-0.3 Automated blood basophil count (count/volume) 0.0 10*3/uL 0.0-0.1 Comprehensive metabolic panel - 12/10/16 22:41 Serum or plasma sodium measurement (moles/volume) 139 mmol/ L 135-145 Serum or plasma potassium measurement (moles/volume) 3.7 mmol/L 3.6-5.0 Serum or plasma chloride measurement (moles/volume) 104 mmol /L 98-107 Carbon dioxide 26 mmol/L 21-32 Serum or plasma anion gap determination (moles/volume) 9 mmol/L 5-14 Serum or plasma urea nitrogen measurement (mass/volume) 18 mg/dL 7-18 Serum or plasma creatinine measurement (mass/volume) 0.83 mg /dL 0.60-1.30 Serum or plasma urea nitrogen/creatinine mass ratio 22 NRG Serum or plasma creatinine measurement with calculation of estimated glomerular filtration rate > NRG Serum or plasma glucose measurement (mass/volume) 87 mg/dL 70-105 Serum or plasma calcium measurement (mass/volume) 9.6 mg/dL 8.5-10.1 Serum or plasma total bilirubin measurement (mass/volume) 0.5 mg/dL 0.1-1.0 Serum or plasma alkaline phosphatase measurement (enzymatic activity/volume) 65 U/L 40-136 Serum or plasma aspartate aminotransferase measurement (enzymatic activity/ volume) 20 U/L 5-34 Serum or plasma alanine aminotransferase measurement (enzymatic activity/volume ) 28 U/L 0-55 Serum or plasma protein measurement (mass/volume) 7.4 g/dL 6.4-8.2 Serum or plasma albumin measurement (mass/volume) 4.4 g/dL 3.2-4.5 Serum or plasma C reactive protein measurement (mass/volume) - 12/10/16 22:41 Serum or plasma C reactive protein measurement (mass/volume) 1.44 mg/dL 0.00-0.50 Methicillin resistant Staphylococcus aureus (MRSA) screening culture - 02:04 Methicillin resistant Staphylococcus aureus (MRSA) screening culture NEG NR Complete blood count (CBC) with automated white blood cell (WBC) differential - 12/11/16 05:50 Blood leukocytes automated count (number/volume) 7.3 10*3/ uL 4.3-11.0 Blood erythrocytes automated count (number/volume) 4.51 10*6 /uL 4.35-5.85 Venous blood hemoglobin measurement (mass/volume) 14.0 g/dL 13.3-17.7 Blood hematocrit (volume fraction) 39 % 40-54 Automated erythrocyte mean corpuscular volume 87 [foz_us] 80-99 Automated erythrocyte mean corpuscular hemoglobin (mass per erythrocyte) 31 pg 25-34 Automated erythrocyte mean corpuscular hemoglobin concentration measurement ( mass/volume) 36 g/dL 32-36 Automated erythrocyte distribution width ratio 13.2 % 10.0-14.5 Automated blood platelet count (count/volume) 189 10*3/uL 130-400 Automated blood platelet mean volume measurement 9.3 [foz_us ] 7.4-10.4 Automated blood neutrophils/100 leukocytes 61 % 42-75 Automated blood lymphocytes/100 leukocytes 28 % 12-44 Blood monocytes/100 leukocytes 9 % 0-12 Automated blood eosinophils/100 leukocytes 2 % 0-10 Automated blood basophils/100 leukocytes 0 % 0-10 Blood neutrophils automated count (number/volume) 4.5 10*3 1.8-7.8 Blood lymphocytes automated count (number/volume) 2.1 10*3 1.0-4.0 Blood monocytes automated count (number/volume) 0.6 10*3 0.0-1.0 Automated eosinophil count 0.1 10*3/uL 0.0-0.3 Automated blood basophil count (count/volume) 0.0 10*3/uL 0.0-0.1 Comprehensive metabolic panel - 12/11/16 05:50 Serum or plasma sodium measurement (moles/volume) 140 mmol/ L 135-145 Serum or plasma potassium measurement (moles/volume) 3.9 mmol/L 3.6-5.0 Serum or plasma chloride measurement (moles/volume) 109 mmol /L 98-107 Carbon dioxide 25 mmol/L 21-32 Serum or plasma anion gap determination (moles/volume) 6 mmol/L 5-14 Serum or plasma urea nitrogen measurement (mass/volume) 13 mg/dL 7-18 Serum or plasma creatinine measurement (mass/volume) 0.77 mg /dL 0.60-1.30 Serum or plasma urea nitrogen/creatinine mass ratio 17 NRG Serum or plasma creatinine measurement with calculation of estimated glomerular filtration rate > NRG Serum or plasma glucose measurement (mass/volume) 84 mg/dL 70-105 Serum or plasma calcium measurement (mass/volume) 8.4 mg/dL 8.5-10.1 Serum or plasma total bilirubin measurement (mass/volume) 0.7 mg/dL 0.1-1.0 Serum or plasma alkaline phosphatase measurement (enzymatic activity/volume) 59 U/L 40-136 Serum or plasma aspartate aminotransferase measurement (enzymatic activity/ volume) 15 U/L 5-34 Serum or plasma alanine aminotransferase measurement (enzymatic activity/volume ) 22 U/L 0-55 Serum or plasma protein measurement (mass/volume) 6.1 g/dL 6.4-8.2 Serum or plasma albumin measurement (mass/volume) 3.8 g/dL 3.2-4.5 Encounters ACCT No. Visit Date/Time Discharge Status Pt. Type Provider Facility Loc./Unit Complaint [id number] 12/11/2016 00:22:00 2016 17:10:00 [facility]RLQ [facility] [id number] 01/29/2015 13:56:00 2014 16:26:00 DIS Emergency ACE JOHNSON, ROOSEVELT Martinez [facility] ER [id number] 08/11/2013 17:34:00 2012 18:12:00 DIS Emergency EDWARD JOHNSON, ALEXANDRE Jackson [facility] ER RAPID HEART RATE [id number] 02/11/2013 17:21:00 2012 23:59:59 CLS Outpatient [id number] 04/08/2016 09:10:00 ACT Outpatient ISRAEL CODY [facility] LAB ANXIETY,CHEST PAIN,PALPITATIONS,SLEEP DIFFICULTIES [id number] 01/24/2016 08:42:00 ACT Outpatient HALINA VALLE MD [facility] CARD PALPITATIONS,CHEST PAIN, ANXIETY [id number] 12/29/2015 09:20:00 ACT Outpatient HALINA VALLE MD [facility] CARD [id number] 12/13/2012 20:21:00 Document Registration [id number] 11/14/2011 12:48:00 Document Registration [id number] 11/12/2011 06:00:00 Document Registration [id number] 11/05/2011 09:16:00 Document Registration
--- OUTSIDE RECORDS SUMMARY | 2016-12-29 05:17 | XMS REPORT ---
Author Author BETTE ROBERTS [facility] eClinicalWorks Address Unknown Phone Unavailable Care Team Providers Care Svp Research And Strategic Analysis Name Role Phone BETTE ROBERTS CP Unavailable [...] End Date Status Dosage Metoprolol Succinate ER [facility] [address]-60 25 MG Orally Once a day 1 tablet Trazodone HCl [facility] [address]-62 100 MG Orally Once a day, hs 2 BusPIRone HCl [facility] [address]-46 15 MG Orally Twice a day May 13, 2016 1 tablet Procedures Procedure Coding System Code Date Office Visit, Est Pt., Level 3 CPT-4 53997 Jun 14, 2016 Vital Signs Date/Time: Jun 14, 2016 Cardiac Monitoring Heart Rate 76 bpm Weight 219.7 lbs Height 69 in BMI 32.44 Index Blood Pressure Diastolic 90 mmHg Blood Pressure Systolic 120 mmHg Results No Known Results Summary Purpose eClinicalWorks Submission
--- OUTSIDE RECORDS SUMMARY | 2016-12-29 05:17 | XMS REPORT ---
Author Author BETTE ROBERTS [facility] eClinical[employer] Address Unknown Phone Unavailable Care Team Providers Care Associate Professor Of Geography Name Role Phone BETTE ROBERTS CP Unavailable Allergies No Known Allergies Problems Problem Type Condition Code Onset Dates Condition Status Problem Alcohol abuse F10.10 Active Problem Depression F32.9 Active Problem Generalized anxiety disorder F41.1 Active Medications Medication Code System Code Instructions Start Date End Date Status Dosage BusPIRone HCl [facility] [address]-77 15 MG Orally Twice a day May 13, 2016 1 tablet Metoprolol Succinate ER [facility] [address]-46 25 MG Orally Once a day 1 tablet Results No Known Results Summary Purpose eClinicalWorks Submission
--- OUTSIDE RECORDS SUMMARY | 2016-12-29 05:17 | XMS REPORT ---
Author Author BETTE ROBERTS [facility] Address [address] [place] [address] Care Team Providers Care Personnel Counselor Name Role Phone BETTE ROBERTS Unavailable PROBLEMS Type Condition ICD9-CM Code [id number] Code Onset Dates Condition Status SNOMED Code Problem Generalized anxiety disorder F41.1 Active 57898118 Problem Alcohol abuse F10.10 Active 11050706 Problem Depression F32.9 Active 58856406 ALLERGIES Unknown Allergies SOCIAL HISTORY No smoking Hx information available PLAN OF CARE VITAL SIGNS MEDICATIONS Medication Instructions Dosage Frequency Start Date End Date Duration Status BusPIRone HCl 15 MG Orally Twice a day 1 tablet 12h Apr, Active RESULTS No Results PROCEDURES No Known procedures IMMUNIZATIONS No Known Immunizations
--- OUTSIDE RECORDS SUMMARY | 2016-12-29 05:17 | XMS REPORT ---
Author Author MARY ELLEN SOTO Organization [employer] Address Unknown Phone Unavailable Care Team Providers Care Visual Educator Name Role Phone MARY ELLEN SOTO CP Unavailable Allergies No Known Allergies Problems Problem Type Condition Code Onset Dates Condition Status Assessment Generalized anxiety disorder F41.1 Active Assessment Alcohol abuse F10.10 Active Problem Depression F32.9 Active Assessment Depressive disorder, not elsewhere classified F32.9 Active Medications No Known Medications Procedures Procedure Coding System Code Date Psychotherapy, patient &/family, 30 minutes, established patient CPT-4 96757 April 01, 2016 Results No Known Results Summary Purpose eClinicalWorks Submission
--- OUTSIDE RECORDS SUMMARY | 2016-12-29 05:17 | XMS REPORT ---
Author Author BETTE ROBERTS [facility] eClinicalWorks Address Unknown Phone Unavailable Care Team Providers Care Rubber Insulator Name Role Phone BETTE ROBERTS CP Unavailable Allergies No Known Allergies Problems Problem Type Condition Code Onset Dates Condition Status Problem Generalized anxiety disorder F41.1 Active Problem Alcohol abuse F10.10 Active Problem Depressive disorder, not elsewhere classified F32.9 Active Assessment Depressive disorder, not elsewhere classified F32.9 Active Problem Depression F32.9 Active Assessment Generalized anxiety disorder F41.1 Active Medications Medication Code System Code Instructions Start Date End Date Status Dosage Trazodone HCl [facility] [address]-08 100 MG Orally Once a day, hs 2 tablet at bedtime Results No Known Results Summary Purpose eClinicalWorks Submission
--- OUTSIDE RECORDS SUMMARY | 2016-12-29 05:17 | XMS REPORT ---
Author Author BETTE ROBERTS [facility] Address [address] [place] [address] Care Team Providers Care Spud Driller Name Role Phone BETTE ROBERTS Unavailable PROBLEMS Type Condition ICD9-CM Code [id number] Code Onset Dates Condition Status SNOMED Code Problem Depressive disorder, not elsewhere classified F32.9 Active 61136798 Problem Generalized anxiety disorder F41.1 Active 50520242 Assessment Generalized anxiety disorder F41.1 Jul, Active 98165781 Problem Alcohol abuse F10.10 Active 58458888 Problem Depression F32.9 Active 12200359 ALLERGIES Unknown Allergies SOCIAL HISTORY No smoking Hx information available PLAN OF CARE VITAL SIGNS MEDICATIONS Medication Instructions Dosage Frequency Start Date End Date Duration Status BusPIRone HCl 15 MG Orally Twice a day 1 tablet 12h Apr, 90 days Active RESULTS No Results PROCEDURES No Known procedures IMMUNIZATIONS No Known Immunizations
--- OUTSIDE RECORDS SUMMARY | 2016-12-29 05:20 | XMS REPORT | Continuity of Care Document ---
Author Author [facility] Organization [facility] Address Unknown Phone Unavailable Allergies Active Description Code Type Severity Reaction Onset Reported/Identified Relationship to Patient Clinical Status Yes No Known Drug Allergies [id number] Drug Allergy Unknown N/ A 11/05/2011 Medications [...] Status Pt. Type Provider Facility Loc./Unit Complaint [id number] 12/11/2016 00:22:00 2016 17:10:00 DIS [facility] [id number] 01/29/2015 13:56:00 2014 16:26:00 DIS Emergency ACE JOHNSON, ROOSEVELT Martinez [facility] ER [id number] 08/11/2013 17:34:00 2012 18:12:00 DIS Emergency EDWARD JOHNSON, ALEXANDRE Jackson [facility] ER RAPID HEART RATE [id number] 02/11/2013 17:21:00 2012 23:59:59 CLS Outpatient [id number] 04/08/2016 09:10:00 ACT Outpatient ISRAEL CODY [facility] LAB ANXIETY,CHEST PAIN,PALPITATIONS,SLEEP DIFFICULTIES [id number] 01/24/2016 08:42:00 ACT Outpatient HALINA VALLE MD [facility] CARD PALPITATIONS,CHEST PAIN, ANXIETY [id number] 12/29/2015 09:20:00 ACT Outpatient HALINA VALLE MD [facility] CARD [id number] 12/13/2012 20:21:00 Document Registration [id number] 11/14/2011 12:48:00 Document Registration [id number] 11/12/2011 06:00:00 Document Registration [id number] 11/05/2011 09:16:00 Document Registration
--- OUTSIDE RECORDS SUMMARY | 2017-01-05 06:12 | XMS REPORT | Continuity of Care Document ---
Author Author [facility] Organization [facility] Address Unknown Phone Unavailable Allergies Active Description Code Type Severity Reaction Onset Reported/Identified Relationship to Patient Clinical Status Yes No Known Drug Allergies [id number] Drug Allergy Unknown N/ A 11/05/2011 Medications [...] Ot F41.8 OTHER SPECIFIED ANXIETY DISORDERS 12/11/2016 IRSAEL BARKLEY Ot G47.09 OTHER INSOMNIA 12/11/2016 ISRAEL [...] BARKLEY Ot R07.89 OTHER CHEST PAIN 12/11/2016 SIERRAYUKI CEDEÑO DO Ot K35.80 UNSPECIFIED ACUTE APPENDICITIS 12/12/2016 SUTTON YUKI ZABALA Ot K35.80 UNSPECIFIED ACUTE APPENDICITIS 12/17/2016 SIERRA YUKI ZABALA Ot K35.80 UNSPECIFIED ACUTE APPENDICITIS 12/24/2016 SUTTON YUKI ZABALA Ot K35.80 UNSPECIFIED ACUTE APPENDICITIS 12/24/2016 SUTTON YUKI ZABALA Ot Z11.2 ENCOUNTER FOR SCREENING FOR OTHER BACTER Procedures Results Test Result Range Complete urinalysis [...] resistant Staphylococcus aureus (MRSA) screening culture NEG [facility] Complete blood count (CBC) with automated white [...] Status Pt. Type Provider Facility Loc./Unit Complaint [id number] 12/11/2016 00:22:00 2016 17:10:00 DIS [facility]RLQ [facility] [id number] 01/29/2015 13:56:00 2014 16:26:00 DIS Emergency ACE JOHNSON, ROOSEVELT Martinez [facility] ER [id number] 08/11/2013 17:34:00 2012 18:12:00 DIS Emergency EDWARD JOHNSON, ALEXANDRE Jacksno [facility] ER RAPID HEART RATE [id number] 02/11/2013 17:21:00 2012 23:59:59 CLS Outpatient [id number] 04/08/2016 09:10:00 ACT Outpatient ISRAEL CODY [facility] LAB ANXIETY,CHEST PAIN,PALPITATIONS,SLEEP DIFFICULTIES [id number] 01/24/2016 08:42:00 ACT Outpatient HALINA VALLE MD [facility] CARD PALPITATIONS,CHEST PAIN, ANXIETY [id number] 12/29/2015 09:20:00 ACT Outpatient HALINA VALLE MD [facility] CARD [id number] 12/13/2012 20:21:00 Document Registration [id number] 11/14/2011 12:48:00 Document Registration [id number] 11/12/2011 06:00:00 Document Registration [id number] 11/05/2011 09:16:00 Document Registration
== END 2016-12-11 17:10 | disposition home or self-care (01) ==
LOC: DELPENDDIS → EDUNIT# 21:13 → ER 21:14 → SDC 12-11 00:22 → 4TH 12-11 00:22 → UNDOADMOB 12-11 00:22 → 4TH 12-11 14:46 → UNDODISOB 12-11 17:10 → SDC 12-11 17:10
PROVIDERS: ATTEND Surgery
DX: K35.80 Unspecified acute appendicitis (principal); Z11.2 Encounter for screening for other bacterial diseases
CPT/HCPCS: 36415; 74177; 80053; 81000; 85025; 86141; 87081; 88304; 96365; 96375

== ENCOUNTER 2017-04-15 19:30 | Outpatient (CLI) | payer OTHER ==
[~2017-04-15 19:30] MED LIST changes: +BUSP15TA60 PO; +BUSPAR; +DOCU-143 PO; +HYDR-3812 PO; +METO-270 PO; +METOPROLOL; +OMG1KC PO; +TRAZ100T92 PO
== END 2017-04-16 06:45 | disposition home or self-care (01) ==
LOC: SLEEP 19:30
PROVIDERS: ATTEND Internal Medicine Cardiovascular Disease
DX: G47.33 Obstructive sleep apnea (adult) (pediatric) (principal); R06.83 Snoring
CPT/HCPCS: 95811

== ENCOUNTER 2020-12-05 20:28 | Emergency (ER) | payer OTHER ==
[~2020-12-05] VITALS: Ht 175.2 cm; Wt 100.6 kg
[~2020-12-05 20:28] MED LIST changes: -HYDR-3812 PO; -METO-270 PO; +MTP25TSR PO; +TRAZ-227 PO; -TRAZ100T92 PO
[2020-12-05] MEDS ORDERED: LACTATED RINGERS 1,000 ML IV ONE ×2 (20:45→21:45)
[2020-12-05] MEDS ORDERED: TETANUS,DIPTH,PERTUSS P/F (BOOSTRIX) 0.5 ML VIAL IM ONE (20:45)
--- NOTE | 2020-12-05 20:48 | ED Fall/Injury ---
General Stated Complaint: HEAD LAC,NOSE BLEED Source: patient History of Present Illness Date Seen by Provider: Dec 05, 2020 Time Seen by Provider: 20:34 Initial Comments PT ARRIVES VIA POV STATES HE WAS AT HIS DAD'S HOUSE AND WAS WALKING DOWN WOODEN STAIRS AND TRIPPED/THINKS "FLIP FLOP" SANDAL GOT CAUGHT AND CAUSED HIM TO FALL DOWN 6-7 STAIRS OCCURRED AROUND 191 TONIGHT HAS MULTIPLE CONTUSIONS TO HEAD C/O NOSE PAIN C/O PAIN TO RIGHT SHOULDER AND CHEST DENIES LOSS OF CONSCIOUSNESS DENIES PARESTHESIAS OR MOTOR DEFICITS-WALKED IN ON HIS OWN DENIES NECK OR BACK PAIN NO VISION CHANGES NO NAUSEA/VOMITING NO DIZZINESS PT STATES HE HAS HAD "3 BEERS" TONIGHT LAST TETANUS VACCINATION IS UNKNOWN CERVICAL COLLAR IMMEDIATELY PLACED ON ARRIVAL PCP: DWIGHT-PANFILO, DR. ROBERTS Allergies and Home Medications Allergies Coded Allergies: No Known Drug Allergies (Unverified , 11/05/11) Home Medications Buspirone HCl 15 Mg Tablet, 15 MG PO BID, (Reported) Docusate Sodium 100 Mg Capsule, 100 MG PO BID Prescribed by: YUKI SIERRA on 12/11/16 1026 Hydrocodone Bit/Acetaminophen 1 Each Tablet, 1 TAB PO Q4H PRN Prescribed by: YUKI SIERRA on 12/11/16 1026 Metoprolol Succinate 25 Mg Tab.er.24h, 12.5 MG PO HS, (Reported) TAKES 1/2 (25MG) TABLET [place] 3 Polyunsat Fatty Acids 1,000 Mg Cap, 1,000 MG PO BID, (Reported) Trazodone HCl 100 Mg Tablet, 100 MG PO HS, (Reported) Patient Home Medication List Home Medication List Reviewed: Yes Review of Systems Review of Systems Constitutional: no symptoms reported Eyes: No Symptoms Reported Ears, Nose, Mouth, Throat: see HPI Respiratory: no symptoms reported Cardiovascular: see HPI, chest pain Gastrointestinal: no symptoms reported; No abdominal pain, No nausea, No vomiting Genitourinary: no symptoms reported Musculoskeletal: see HPI Skin: other (ABRASIONS TO HEAD AND FACE ) Psychiatric/Neurological: No Symptoms Reported; Denies Headache, Denies Numbness, Denies Paresthesia, Denies Tingling, Denies Weakness Past Cztdvio-Ezlylq-Gccdth Hx Patient Social History Alcohol Use: Regular Use Drug of Choice: DENIES Smoking Status: Former Smoker (< 1 PPD, QUIT 2008) Type Used: Cigarettes Recent Hopitalizations: No Immunizations Up To Date Tetanus Booster (TDap): Unknown Date of Influenza Vaccine: Jun 15, 2011 Seasonal Allergies Seasonal Allergies: No Past Medical History Surgeries: Yes (carpal tunnel, PARTIAL FINGER AMPUTATION) Appendectomy, Orthopedic Respiratory: No Cardiac: No Neurological: No Genitourinary: No Gastrointestinal: Yes (APPENDECTOMY) Musculoskeletal: Yes (CARPAL TUNNEL SURGERY; PARTIAL FINGER AMPUTATION) Endocrine: No HEENT: No Cancer: No Psychosocial: Yes Sleep Difficulties, Anxiety, Depression Integumentary: No Blood Disorders: No Family Medical History Diabetes mellitus 19 MOTHER FH: bipolar disorder 19 MOTHER No Pertinent Family Hx SOCIAL HISTORY: -ETOH --DRINKS "2-3 DAYS A WEEK" -DRUGS--DENIES USE -SMOKING--< 1 PPD, QUIT 2008 Physical Exam Vital Signs Vital Signs - First Documented Capillary Refill : Height, Weight, BMI Height: 5'9.00" Weight: 207lbs. 0.0oz. [id number]; 30.6 BMI Method:Stated General Appearance: WD/WN, no apparent distress, other (SPEECH CLEAR, GAIT STEADY. + ODOR OF ETOH) HEENT: PERRL/EOMI, TMs normal; No photophobia; other (HAS TENDERNESS, ABRASION AND CONTUSION TO POSTERIOR ASPECT OF HEAD/CROWN AREA. TENDER, RAISED CONTUSION TO LEFT FOREHEAD, ABRASION, TENDERNESS AND SWELLING TO RIGHT CHEEK, TENDERNESS AND SWELLING TO LEFT CHEEK, ABRASION AND SWELLING TO LEFT SIDE OF NOSE AND LEFT NARE. 1/2 CM SUPERFICIAL LACERATION TO INFERIOR ASPECT OF LEFT NARE AT NASO- LABIAL AREA. ) Neck: No tender lateral, No tender midline; other (CERVICAL COLLAR PLACE ON ARRIVAL) Cardiovascular: normal peripheral pulses, regular rate, rhythm, no murmur Respiratory: normal breath sounds, no respiratory distress, no accessory muscle use, other (TENDERNESS TO RIGHT ANTERIOR CHEST) Gastrointestinal: normal bowel sounds, non tender, soft Back: no CVA tenderness, no vertebral tenderness Extremities: normal capillary refill, other (TENDERNESS TO RIGHT SHOULDER) Neurologic/Psychiatric: senior case manager II-XII nml as tested, no motor/sensory deficits, alert, normal mood/affect, oriented x 3 Skin: normal color, warm/dry, other ( ABOVE) Progress/Results/Core Measures Results/Orders Lab Results Laboratory Tests Test 12/05/20 20:44 12/05/20 21:41 Range/Units White Blood Count 7.5 4.3-11.0 10^3/uL Red Blood Count 4.31 4.30-5.52 10^6/uL Hemoglobin 15.1 13.3-17.7 g/dL Hematocrit 42 40-54 % Mean Corpuscular Volume 97 80-99 fL Mean Corpuscular Hemoglobin 35 H 25-34 pg Mean Corpuscular Hemoglobin Concent 36 32-36 g/dL Red Cell Distribution Width 11.9 10.0-14.5 % Platelet Count 195 130-400 10^3/uL Mean Platelet Volume 8.4 L 9.0-12.2 fL Immature Granulocyte % (Auto) 1 % Neutrophils (%) (Auto) 69 42-75 % Lymphocytes (%) (Auto) 21 12-44 % Monocytes (%) (Auto) 9 0-12 % Eosinophils (%) (Auto) 0 0-10 % Basophils (%) (Auto) 1 0-10 % Neutrophils # (Auto) 5.2 1.8-7.8 10^3/uL Lymphocytes # (Auto) 1.6 1.0-4.0 10^3/uL Monocytes # (Auto) 0.6 0.0-1.0 10^3/uL Eosinophils # (Auto) 0.0 0.0-0.3 10^3/uL Basophils # (Auto) 0.0 0.0-0.1 10^3/uL Immature Granulocyte # (Auto) 0.1 0.0-0.1 10^3/uL Prothrombin Time 13.4 12.2-14.7 SEC INR Comment 1.0 0.8-1.4 Activated Partial Thromboplast Time 29 24-35 SEC Sodium Level 135 135-145 MMOL/L Potassium Level 3.4 L 3.6-5.0 MMOL/L Chloride Level 100 98-107 MMOL/L Carbon Dioxide Level 22 21-32 MMOL/L Anion Gap 13 5-14 MMOL/L Blood Urea Nitrogen 13 7-18 MG/DL Creatinine 0.83 0.60-1.30 MG/DL Estimat Glomerular Filtration Rate > 60 BUN/Creatinine Ratio 16 Glucose Level 83 70-105 MG/DL Calcium Level 9.3 8.5-10.1 MG/DL Corrected Calcium 9.0 8.5-10.1 MG/DL Total Bilirubin 0.4 0.1-1.0 MG/DL Aspartate Amino Transf (AST/SGOT) 23 5-34 U/L Alanine Aminotransferase (ALT/SGPT) 21 0-55 U/L Alkaline Phosphatase 68 40-136 U/L Total Protein 7.6 6.4-8.2 GM/DL Albumin 4.4 3.2-4.5 GM/DL Amylase Level 100 25-125 U/L Lipase 82 H 8-78 U/L Serum Alcohol 199 H <10 MG/DL Urine Color YELLOW Urine Clarity CLEAR Urine pH 5.5 5-9 Urine Specific [place] <=1.005 1.016-1.022 Urine Protein NEGATIVE NEGATIVE Urine Glucose (UA) NEGATIVE NEGATIVE Urine Ketones NEGATIVE NEGATIVE Urine Nitrite NEGATIVE NEGATIVE Urine Bilirubin NEGATIVE NEGATIVE Urine Urobilinogen 0.2 < = 1.0 MG/DL Urine Leukocyte Esterase NEGATIVE NEGATIVE Urine RBC (Auto) TRACE-I NEGATIVE Urine RBC NONE /HPF Urine WBC NONE /HPF Urine Squamous Epithelial Cells RARE /HPF Urine Crystals NONE /LPF Urine Bacteria NEGATIVE /HPF Urine Casts NONE /LPF Urine Mucus NEGATIVE /LPF Urine Culture Indicated NO Urine Opiates Screen NEGATIVE NEGATIVE Urine Oxycodone Screen NEGATIVE NEGATIVE Urine Methadone Screen NEGATIVE NEGATIVE Urine Propoxyphene Screen NEGATIVE NEGATIVE Urine Barbiturates Screen NEGATIVE NEGATIVE Ur Tricyclic Antidepressants Screen NEGATIVE NEGATIVE Urine Phencyclidine Screen NEGATIVE NEGATIVE Urine Amphetamines Screen NEGATIVE NEGATIVE Urine Methamphetamines Screen NEGATIVE NEGATIVE Urine Benzodiazepines Screen NEGATIVE NEGATIVE Urine Cocaine Screen NEGATIVE NEGATIVE Urine Cannabinoids Screen NEGATIVE NEGATIVE My Orders Orders - DAMIAN PEREIRA DO Ed Iv/Invasive Line Start (12/05/20 20:41) Monitor-Rhythm Ecg Trace Only (12/05/20 20:41) Ct Head/Face/Cervical Wo (12/05/20 20:41) Ct Thoracic/Lumbar Spine Wo (12/05/20 20:41) Chest 1 View, Ap/Pa Only (12/05/20 20:41) Shoulder, Right, 3 Views (12/05/20 20:41) Pelvis (12/05/20 20:41) Alcohol (12/05/20 20:41) Amylase (12/05/20 20:41) Cbc With Automated Diff (12/05/20 20:41) Comprehensive Metabolic Panel (12/05/20 20:41) Drug Screen Stat (Urine) (12/05/20 20:41) Lipase (12/05/20 20:41) Protime With Inr (12/05/20 20:41) Partial Thromboplastin Time (12/05/20 20:41) Ua Culture If Indicated (12/05/20 20:41) Ed Iv/Invasive Line Start (12/05/20 20:41) Lactated Ringers (Lr 1000 Ml Iv Solution (12/05/20 20:45) Dipht,Pertuss(Acell),Tet Adult (Boostrix (12/05/20 20:45) Ct Chest/Abdomen/Pelvis W (12/05/20 20:41) Iohexol Injection (Omnipaque 350 Mg/Ml 1 (12/05/20 21:00) Received Contrast (Hold Metformin- Contr (12/05/20 21:00) Ns (Ivpb) (Sodium Chloride 0.9% Ivpb Bag (12/05/20 21:00) Ed Iv/Invasive Line Start (12/05/20 21:38) Lactated Ringers (Lr 1000 Ml Iv Solution (12/05/20 21:45) Acetaminophen Tablet (Tylenol Tablet) (12/05/20 22:45) Medications Given in ED Current Medications Medications Dose Ordered Sig/Ashu Route Start Time Stop Time Status Last Admin Dose Admin Diphtheria/ Tetanus/Acell Pertussis 0.5 ml ONCE ONCE IM 12/05/20 20:45 12/05/20 20:46 DC 12/05/20 20:58 0.5 ML Lactated Ringer's 1,000 ml @ 0 mls/hr Q0M ONCE IV 12/05/20 20:45 12/05/20 20:46 DC 12/05/20 20:56 0 MLS/HR Lactated Ringer's 1,000 ml @ 0 mls/hr Q0M ONCE IV 12/05/20 21:45 12/05/20 21:46 DC 12/05/20 22:18 1,000 MLS/HR Vital Signs/I&O 12/05/20 12/05/20 20:30 20:30 Temp 36.5 36.5 Pulse 87 20 Resp 20 20 B/P (MAP) 147/107 (120) 147/107 (120) Pulse Ox 99 99 O2 Delivery Room Air Progress Progress Note : Progress Note CERVICAL COLLAR IMMEDIATELY PLACED ON ARRIVAL, LATER REMOVED AFTER RECEIVING RADIOLOGIST REPORT OF NO ACUTE PROCESS OF CERVICAL SPINE. PT DENIES NECK PAIN OR TENDERNESS TINY LACERATION BELOW LEFT NARE DOES NOT REQUIRE SUTURES--SMALL AND SUPERFICIAL AND NON-GAPING. UNEVENTFUL ER STAY Diagnostic Imaging Comments CT HEAD/MAXILLOFACIALS/CERVICAL SPINE--PER RADIOLOGIST REPORT AT 2155 IMPRESSION: CT HEAD: 1. Negative for acute intracranial abnormality. Left frontal scalp edema. CT MAXILLOFACIAL: 1. Very slight asymmetry of the lateral left orbital wall and zygomatic arch. However, definitive fracture line is not visualized. Perhaps owing to prior traumatic change. Otherwise, negative for acute displaced maxillofacial fracture deformity. CT CERVICAL SPINE: 1. Negative for acute fracture or traumatic subluxation. CT CHEST/ABDOMEN/PELVIS--PER RADIOLOGIST REPORT AT 2204 CT CHEST: Heart size normal. Thoracic aorta normal in caliber. No dissection. No mediastinal hematoma. Lung maya are clear. No infiltrate, contusion, effusion and/or pneumothorax. Osseous structures demonstrate no acute abnormality. Sternum intact. Visualized ribs maintained. Advanced degenerative changes thoracic spine. CT ABDOMEN and PELVIS: 1 cm low-density foci central right hepatic lobe nonspecific may be reflective of a hemangioma, appears unchanged from prior. No acute injury to the liver. Gallbladder, spleen, pancreas adrenal glands and kidneys demonstrate no acute abnormality. Abdominal aorta normal in contour. A few shotty subcentimeter central retroperitoneal lymph nodes. Gastrointestinal tract demonstrates no obstruction or inflammation. No abdominal ascites and/or free air. Urinary bladder unremarkable. Prostate gland unremarkable. Osseous structures demonstrate no acute fracture. CXR--PER RADIOLOGIST REPORT AT 2220 FINDINGS: The heart size, mediastinal configuration and pulmonary vascularity are within normal limits. The lungs are clear with no consolidating infiltrate. There is no significant effusion or pneumothorax. IMPRESSION: 1. Negative for acute traumatic abnormality of the chest. RIGHT SHOULDER XRAYS--PER RADIOLOGIST REPORT AT 2220 FINDINGS: The glenohumeral and acromioclavicular alignment are maintained and unremarkable. There is no evidence for acute fracture or dislocation. The visualized soft tissues are unremarkable. IMPRESSION: 1. Negative for acute bony abnormality about the shoulder PELVIS XRAY--PER RADIOLOGIST REPORT AT 2222 FINDINGS: The pelvis demonstrates no evidence for acute fracture. The pectineal lines and obturator rings are maintained. Pubic symphysis and SI joints are unremarkable. Hips unremarkable. Bladder contrast does obscure detail. IMPRESSION: Negative examination of the pelvis. CT THORACIC/LUMBAR SPINE--PER RADIOLOGIST REPORT AT 2233 FINDINGS: Thoracic spinal alignment is relatively anatomic. While there is slight loss of a few thoracic vertebral bodies, there is no suggestion for acute compression deformity. Multilevel disc space narrowing and endplate osteophyte formation. Posterior elements are intact and in normal alignment. Visualized lung maya unremarkable. Lumbar spinal alignment anatomic. Lumbar vertebral body heights are maintained. Disc spaces overall are fairly well preserved. Posterior elements intact. No spondylolysis. Visualized sacroiliac joints are unremarkable. Paraspinal soft tissues unremarkable. IMPRESSION: 1. Negative for acute fracture thoracic spine. There is moderately advanced thoracic spondylosis. 2. Negative for acute fracture lumbar spine. Reviewed: Reviewed by Me Departure Impression Primary Impression: Fall down stairs Additional Impressions: [id number] (DPT) vaccination administered at current visit Alcohol intoxication CLOSED HEAD INJURY WITHOUT LOSS OF CONSCIOUSNESS MUJLTIPLE HEAD CONTUSIONS Multiple abrasions Contusion of right shoulder CERVICAL SPINE STRAIN Back strain Disposition: HOME, SELF-CARE Condition: Stable Departure-Patient Inst. Referrals: BETTE ROBERTS MD (PCP/Family) Primary Care Physician Patient Instructions: Alcohol Intoxication ED, Back Muscle Strain (DC), CHEST CONTUSION, Closed Head Injury (DC), Contusion (DC), Diphtheria and Tetanus Toxoids, and Acellular Pertussis Vaccine, Muscle and Bone Pain (DC), Neck Sprain (DC), Skin Abrasions (DC) Add. Discharge Instructions: ICE TO SORE AREAS AT 20 MINUTE INTERVALS TYLENOL NEEDED FOR PAIN FOR FIRST 24 HOURS, THEN MAY ADD IBUPROFEN NEEDED FOR PAIN CLEAN WOUNDS TWICE A DAY WITH ANTIBACTERIAL SOAP AND WATER, APPLY ANTIBIOTIC OINTMENT TWICE A DAY FOLLOW UP WITH YOUR DR IN 4-5 DAYS IF NO BETTER, RETURN TO ER IF WORSE DAMIAN PEERIRA DO Dec 05, 2020 20:48
[2020-12-05 20:52] LABS: BASOPHILS % (AUTO) 1 % (0-10); EOSINOPHILS % (AUTO) 0 % (0-10); HEMATOCRIT 42 % (40-54); HEMOGLOBIN 15.1 g/dL (13.3-17.7); LYMPHOCYTES # (AUTO) 1.6 10^3/uL (1.0-4.0); LYMPHOCYTES % (AUTO) 21 % (12-44); MEAN CORPUSCULAR HEMOGLOBIN 35 pg (25-34); MEAN CORPUSCULAR HGB CONC 36 g/dL (32-36); MEAN CORPUSCULAR VOLUME 97 fL (80-99); MEAN PLATELET VOLUME 8.4 fL (9.0-12.2); MONOCYTES # (AUTO) 0.6 10^3/uL (0.0-1.0); MONOCYTES % (AUTO) 9 % (0-12); NEUTROPHILS # (AUTO) 5.2 10^3/uL (1.8-7.8); NEUTROPHILS % (AUTO) 69 % (42-75); PLATELET COUNT 195 10^3/uL (130-400); WHITE BLOOD COUNT 7.5 10^3/uL (4.3-11.0)
[2020-12-05] MEDS ORDERED: IOHEXOL 350 MG/ML 100 ML (OMNIPAQUE 350) VIAL IV ONE (21:00)
[2020-12-05] MEDS ORDERED: HOLD METFORMIN - RECEIVED CONTRAST 20 ML VIAL IV SCH (21:00)
[2020-12-05] MEDS ORDERED: NS 100 ML (IVPB) BAG IV ONE (21:00)
[2020-12-05 21:04] LABS: PROTHROMBIN TIME PATIENT 13.4 SEC (12.2-14.7)
[2020-12-05 21:13] LABS: ALANINE AMINOTRANSFERASE 21 U/L (0-55); ALBUMIN 4.4 GM/DL (3.2-4.5); ALKALINE PHOSPHATASE 68 U/L (40-136); AMYLASE 100 U/L (25-125); BILIRUBIN,TOTAL 0.4 MG/DL (0.1-1.0); BUN/CREATININE RATIO 16; CALCIUM 9.3 MG/DL (8.5-10.1); CARBON DIOXIDE 22 MMOL/L (21-32); CHLORIDE 100 MMOL/L (98-107); CREATININE SERUM 0.83 MG/DL (0.60-1.30); GFR ESTIMATED > 60; GLUCOSE 83 MG/DL (70-105); LIPASE 82 U/L (8-78); POTASSIUM 3.4 MMOL/L (3.6-5.0); SODIUM 135 MMOL/L (135-145); TOTAL PROTEIN 7.6 GM/DL (6.4-8.2)
[2020-12-05 21:50] LABS: BILIRUBIN,URINE NEGATIVE (NEGATIVE); CLARITY,URINE CLEAR; COLOR,URINE YELLOW; GLUCOSE, URINE (UA) NEGATIVE (NEGATIVE); KETONES,URINE NEGATIVE (NEGATIVE); LEUKOCYTE ESTERASE ,URINE NEGATIVE (NEGATIVE); NITRITE,URINE NEGATIVE (NEGATIVE); PH,URINE 5.5 (5-9); PROTEIN,URINE NEGATIVE (NEGATIVE)
--- NOTE | 2020-12-05 21:51 | Diagnostic Imaging Report ---
PROCEDURE: CT head, face, and cervical spine without contrast. TECHNIQUE: Multiple contiguous axial images were obtained through the head, neck, and facial bones without the use of intravenous contrast. Sagittal and coronal reformations through the cervical spine and facial bones were also performed. Auto Exposure Controls were utilized during the CT exam to meet ALARA standards for radiation dose reduction. INDICATION: Trauma, fall down a flight of stairs. Head laceration, nose bleeding. CORRELATION STUDY: None FINDINGS: CT HEAD: Ventricles and sulci are age-appropriate. No abnormal areas of edema. No midline shift or mass effect. No intracranial hemorrhage. Mild asymmetric left frontal scalp edema. Underlying bony calvarium is intact. CT MAXILLOFACIAL: Left frontal soft tissue edema. There is also mild asymmetric edema over the maxillofacial structures. The globes are symmetric. Retro-orbital structures are unremarkable. Very slight asymmetric thinning of the posterior lateral left orbital wall. Definitive fracture is not visualized. Orbital reinoso including floors intact. Very slight asymmetry in the left zygomatic arch as well. Pterygoid plates are maintained. Maxillary sinus reinoso preserved. No air-fluid levels. Mandible intact. Asymmetric degenerative changes at the left temporomandibular joint. Nasal bones intact. Nasal cavity demonstrates minimal nasal septal deviation left-sided nasal spur but otherwise unremarkable. CT CERVICAL SPINE: Reformatted images with relatively normal alignment. There is no acute fracture or traumatic subluxation. Vertebral body heights are maintained. Slight asymmetric disc space narrowing at the lower cervical levels. Odontoid intact. Occipital condyles maintained. Lateral masses of C1-C2 aligned. IMPRESSION: CT HEAD: 1. Negative for acute intracranial abnormality. Left frontal scalp edema. CT MAXILLOFACIAL: 1. Very slight asymmetry of the lateral left orbital wall and zygomatic arch. However, definitive fracture line is not visualized. Perhaps owing to prior traumatic change. Otherwise, negative for acute displaced maxillofacial fracture deformity. CT CERVICAL SPINE: 1. Negative for acute fracture or traumatic subluxation. Dictated by: Dictated on workstation # [id number]
--- NOTE | 2020-12-05 21:54 | Diagnostic Imaging Report ---
PROCEDURE: CT chest, abdomen, and pelvis with contrast. TECHNIQUE: Multiple contiguous axial images were obtained through the chest, abdomen, and pelvis after the administration of intravenous contrast. Auto Exposure Controls were utilized during the CT exam to meet ALARA standards for radiation dose reduction. INDICATION: 45-year-old male, fall down flight of stairs. Trauma. CORRELATION STUDY: CT abdomen and pelvis 12/10/2016 FINDINGS: CT CHEST: Heart size normal. Thoracic aorta normal in caliber. No dissection. No mediastinal hematoma. Lung maya are clear. No infiltrate, contusion, effusion and/or pneumothorax. Osseous structures demonstrate no acute abnormality. Sternum intact. Visualized ribs maintained. Advanced degenerative changes thoracic spine. CT ABDOMEN and PELVIS: 1 cm low-density foci central right hepatic lobe nonspecific may be reflective of a hemangioma, appears unchanged from prior. No acute injury to the liver. Gallbladder, spleen, pancreas adrenal glands and kidneys demonstrate no acute abnormality. Abdominal aorta normal in contour. A few shotty subcentimeter central retroperitoneal lymph nodes. Gastrointestinal tract demonstrates no obstruction or inflammation. No abdominal ascites and/or free air. Urinary bladder unremarkable. Prostate gland unremarkable. Osseous structures demonstrate no acute fracture. IMPRESSION: CT CHEST: 1. Negative for acute traumatic abnormality of the chest. CT ABDOMEN and PELVIS: 1. Negative for acute traumatic abnormality about the abdomen and/or pelvis. Dictated by: Dictated on workstation # [id number]
[2020-12-05 21:56] LABS: BACTERIA,URINE NEGATIVE /HPF; SQUAMOUS EPITHELIAL CELL,UR RARE /HPF
--- NOTE | 2020-12-05 22:14 | Diagnostic Imaging Report ---
INDICATION: shoulder pain TECHNIQUE: Three views of the right shoulder CORRELATION STUDY: None FINDINGS: The glenohumeral and acromioclavicular alignment are maintained and unremarkable. There is no evidence for acute fracture or dislocation. The visualized soft tissues are unremarkable. IMPRESSION: 1. Negative for acute bony abnormality about the shoulder. Dictated by: Dictated on workstation # [id number]
[2020-12-05 22:16] LABS: AMPHETAMINE SCREEN, URINE NEGATIVE (NEGATIVE); BARBITURATE SCREEN URINE NEGATIVE (NEGATIVE); BENZODIAZEPINES SCREEN URINE NEGATIVE (NEGATIVE); CANNABINOID SCREEN, URINE NEGATIVE (NEGATIVE); COCAINE SCREEN URINE NEGATIVE (NEGATIVE); METHADONE STAT NEGATIVE (NEGATIVE); METHAMPHETAMINE SCREEN URINE S NEGATIVE (NEGATIVE); OPIATE SCREEN URINE NEGATIVE (NEGATIVE); OXYCODONE STAT NEGATIVE (NEGATIVE); PROPOXYPHENE STAT NEGATIVE (NEGATIVE); TRICYCLIC ANTIDEPRESSANTS SCRE NEGATIVE (NEGATIVE)
--- NOTE | 2020-12-05 22:20 | Diagnostic Imaging Report ---
INDICATION: FALL DOWN STAIRS. TECHNIQUE: Single view chest 9:37 PM. CORRELATION STUDY: CT chest same day FINDINGS: The heart size, mediastinal configuration and pulmonary vascularity are within normal limits. The lungs are clear with no consolidating infiltrate. There is no significant effusion or pneumothorax. IMPRESSION: 1. Negative for acute traumatic abnormality of the chest. Dictated by: Dictated on workstation # [id number]
--- NOTE | 2020-12-05 22:20 | Diagnostic Imaging Report ---
INDICATION: pelvic pain TECHNIQUE: AP pelvis 9:37 PM CORRELATION STUDY: CT abdomen pelvis same day FINDINGS: The pelvis demonstrates no evidence for acute fracture. The pectineal lines and obturator rings are maintained. Pubic symphysis and SI joints are unremarkable. Hips unremarkable. Bladder contrast does obscure detail. IMPRESSION: Negative examination of the pelvis. Dictated by: Dictated on workstation # [id number]
--- NOTE | 2020-12-05 22:31 | Diagnostic Imaging Report ---
PROCEDURE: CT thoracic and lumbar spine without contrast. TECHNIQUE: Multiple contiguous axial images were obtained through the thoracic and lumbar spine without the use of intravenous contrast. Sagittal and coronal reformations were then performed. All CT scans use one or more of the following dose optimizing techniques: automated exposure control, MA and/or KvP adjustment based on a patient size and exam type, or iterative reconstruction. INDICATION: 45-year-old male, fall down a flight of stairs. Trauma, pain. CORRELATION STUDY: None FINDINGS: Thoracic spinal alignment is relatively anatomic. While there is slight loss of a few thoracic vertebral bodies, there is no suggestion for acute compression deformity. Multilevel disc space narrowing and endplate osteophyte formation. Posterior elements are intact and in normal alignment. Visualized lung maya unremarkable. Lumbar spinal alignment anatomic. Lumbar vertebral body heights are maintained. Disc spaces overall are fairly well preserved. Posterior elements intact. No spondylolysis. Visualized sacroiliac joints are unremarkable. Paraspinal soft tissues unremarkable. IMPRESSION: 1. Negative for acute fracture thoracic spine. There is moderately advanced thoracic spondylosis. 2. Negative for acute fracture lumbar spine. Dictated by: Dictated on workstation # [id number]
[2020-12-05] MEDS ORDERED: ACETAMINOPHEN 500 MG TAB (TYLENOL) PO ONE (22:45)
[2020-12-05 22:49] VITALS: BP 135/98
== END 2020-12-05 22:50 | disposition home or self-care (01) ==
LOC: EDUNIT# 20:28 → ER 20:30
DX: S09.90XA Unspecified injury of head, initial encounter (principal); S01.21XA Laceration without foreign body of nose, initial encounter; S16.1XXA Strain of muscle, fascia and tendon at neck level, initial encounter; S39.012A Strain of muscle, fascia and tendon of lower back, initial encounter; S40.011A Contusion of right shoulder, initial encounter; F10.129 Alcohol abuse with intoxication, unspecified; R07.89 Other chest pain; F41.9 Anxiety disorder, unspecified; F32.9 Major depressive disorder, single episode, unspecified; G47.9 Sleep disorder, unspecified; Z23 Encounter for immunization; Z87.891 Personal history of nicotine dependence; Y90.6 Blood alcohol level of 120-199 mg/100 ml; W10.8XXA Fall (on) (from) other stairs and steps, initial encounter; Y92.009 Unspecified place in unspecified non-institutional (private) residence as the place of occurrence of the external cause
CPT/HCPCS: 70450; 70486; 71045; 71260; 72125; 72128; 72131; 72170; 73030; 74177; 80053; 80306; 81000; 82150; 83690; 85025; 85610; 85730; 93041; G0480; 36415; 80320; 90715

== ENCOUNTER 2021-05-20 19:03 | Emergency (ER) | payer OTHER ==
[~2021-05-20] VITALS: Ht 175 cm; Wt 102.0 kg
[2021-05-20 19:19] VITALS: BP 143/93
[2021-05-20] MEDS ORDERED: TETANUS,DIPTH,PERTUSS P/F (BOOSTRIX) 0.5 ML VIAL IM ONE (19:45)
[2021-05-20] MEDS ORDERED: CEPH500T PO (20:39)
[2021-05-20] MEDS ORDERED: ACHD5005 PO (20:39)
--- NOTE | 2021-05-20 20:40 | ED Upper Extremity ---
General Chief Complaint: Laceration Stated Complaint: R HAND LAC Nursing Triage Note: Laceration to R thumb from lawnmower blade Source: patient Exam Limitations: no limitations (KRISTA GONG APRN) History of Present Illness Date Seen by Provider: May 20, 2021 Time Seen by Provider: 19:00 Initial Comments To ER with laceration to the right thumb. He was reaching down to roller picker a stick between the mower side exhaust and one of the blades cut his fingertip. Tetanus is not up-to-date. Onset: just prior to arrival Severity: moderate Pain/Injury Location: right thumb Method of Injury: direct blow Modifying Factors: Worse With Movement (KRISTA GONG APRN) Allergies and Home Medications Allergies Coded Allergies: No Known Drug Allergies (Unverified , 11/05/11) Patient Home Medication List Home Medication List Reviewed: Yes (KRISTA GONG APRN) Buspirone HCl (Buspirone HCl) 15 Mg Tablet, 15 MG PO BID, (Reported) Entered as Reported by: VIOLETTA BRUCE on 12/11/16 0308 Cephalexin (Cephalexin) 500 Mg Tablet, 500 MG PO TID Prescribed by: KRISTA GONG on 05/20/212038 Docusate Sodium (Colace) 100 Mg Capsule, 100 MG PO BID Prescribed by: YUKI SIERRA on 12/11/16 1026 Hydrocodone Bit/Acetaminophen (Lortab 5 Mg Tablet) 1 Each Tablet, 1 TAB PO Q4H PRN Prescribed by: YUKI SIERRA on 12/11/16 1026 Hydrocodone/Acetaminophen (Hydrocodone-Acetamin 5-325 mg) 1 Each Tablet, 1 TAB PO Q4H PRN for PAIN-MODERATE (5-7) Prescribed by: KRISTA GONG on 05/20/212039 Metoprolol Succinate (Metoprolol Succinate) 25 Mg Tab.er.24h, 12.5 MG PO HS, (Reported) Entered as Reported by: VIOLETTA BRUCE on 12/11/16 0310 [place] 3 Polyunsat Fatty Acids (Fish Oil 1,000 mg Capsule) 1,000 Mg Cap, 1,000 MG PO BID, (Reported) Entered as Reported by: JEYSON LOPEZ on 12/11/16 0839 Trazodone HCl (Trazodone HCl) 100 Mg Tablet, 100 MG PO HS, (Reported) Entered as Reported by: VIOLETTA BRUCE on 12/11/16 0321 Review of Systems Constitutional: see HPI EENTM: see HPI Respiratory: no symptoms reported Cardiovascular: no symptoms reported Genitourinary: no symptoms reported Musculoskeletal: no symptoms reported Skin: no symptoms reported Psychiatric/Neurological: No Symptoms Reported (KRISTA GONG APRN) Past Rmeurpa-Mdzuzd-Hcqttp Hx Patient Social History Tobacco Use?: No Use of E-Cig and/or Vaping dev: No Substance use?: No Alcohol Use?: Yes Alcohol Frequency: Couple times a week Pt feels they are or have been: No (KRISTA GONG APRN) Immunizations Up To Date Tetanus Booster (TDap): Unknown (KRISTA GONG APRN) Seasonal Allergies Seasonal Allergies: No (KRISTA GONG APRN) Past Medical History Surgery/Hospitalization HX: rheumatoid arthritis, hypertension, anxiety Surgeries: Yes (carpal tunnel, PARTIAL FINGER AMPUTATION) Appendectomy, Orthopedic Respiratory: No Cardiac: No Neurological: No Genitourinary: No Gastrointestinal: Yes (APPENDECTOMY) Musculoskeletal: Yes (CARPAL TUNNEL SURGERY; PARTIAL FINGER AMPUTATION) Endocrine: No HEENT: No Cancer: No Psychosocial: Yes Sleep Difficulties, Anxiety, Depression Integumentary: No Blood Disorders: No (KRISTA GONG APRN) Family Medical History Diabetes mellitus 19 MOTHER FH: bipolar disorder 19 MOTHER No Pertinent Family Hx SOCIAL HISTORY: -ETOH --DRINKS "2-3 DAYS A WEEK" -DRUGS--DENIES USE -SMOKING--< 1 PPD, QUIT 2008 (KRISTA GONG APRN) Physical Exam Vital Signs Vital Signs - First Documented 05/20/21 19:19 Temp 36.7 Pulse 87 Resp 18 B/P (MAP) 143/93 (110) Pulse Ox 98 O2 Delivery Room Air (STEPHANIE RILEY MD) Vital Signs Capillary Refill : Less Than 3 Seconds (KRISTA GONG APRN) Height, Weight, BMI Height: 5'9.00" Weight: 207lbs. 0.0oz. 93.774893mm; 33.00 BMI Method:Stated General Appearance: WD/WN, no apparent distress HEENT: PERRL/EOMI, normal ENT inspection Neck: non-tender, full range of motion Respiratory: no respiratory distress, no accessory muscle use Gastrointestinal: normal bowel sounds, non tender Shoulder: normal inspection, non-tender Elbow/Forearm: normal inspection, non-tender Hand: Right (There is a laceration through the nail plate distally. There is a skin avulsion of the pad of the thumb distally. Minimal active bleeding.) Neurologic/Tendon: normal sensation, normal motor functions, normal tendon functions Neurologic/Psychiatric: alert, normal mood/affect, oriented x 3 Skin: normal color, warm/dry (KRISTA GONG APRN) Progress/Results/Core Measures Results/Orders Blood Pressure Mean: 110 Departure Communication (Admissions) Laceration repair note: Digital block was done using 5 mL of 1% lidocaine buffered with 1 mL of sodium bicarbonate. Thumb tourniquet was then applied. Wound was then scrubbed. The distal nail plate was removed off of the nailbed and the laceration was sutured with one end through the distal nail bed and the other end through the proximal nail plate. 2 sutures simple interrupted, Prolene size 5-0. The skin avulsion was then glued with Dermabond to achieve hemostasis. The tourniquet was removed and a splint was applied. (KRISTA GONG APRN) Impression Primary Impression: Thumb fracture Additional Impression: Laceration of nail bed of finger Disposition: HOME, SELF-CARE Condition: Stable Departure-Patient Inst. Decision time for Depature: 20:38 (KRISTA GONG APRN) Referrals: BETTE ROBERTS MD (PCP/Family) Primary Care Physician Patient Instructions: Laceration Repair With Stitches (DC) Add. Discharge Instructions: . You can shower letting water run over this starting tomorrow but do not soak this in water such as a hot tub bathtub or swimming pool until the stitches are removed. Return to the emergency room on Friday the to have the stitches removed. Take the antibiotics and the pain medication as needed. Return to ER for any worsening. All discharge instructions reviewed with patient and/or family. Voiced understanding. Scripts Cephalexin (Cephalexin) 500 Mg Tablet 500 MG PO TID, #15 TAB Prov: KRISTA GONG APRN 05/20/21 Hydrocodone/Acetaminophen (Hydrocodone-Acetamin 5-325 mg) 1 Each Tablet 1 TAB PO Q4H PRN for PAIN-MODERATE (5-7), #10 TAB Prov: KRISTA GONG APRN 05/20/21 Work/School Note: Work Release Form Date Seen in the Emergency Department: May 20, 2021 Return to Work: May 29, 2021 ATTENDING PHYSICIAN NOTE: I was physically present as attending physician in the emergency department during the care of this patient, but I was not directly involved in the decision making or delivery of care for this patient. (STEPHANIE RILEY MD) KRISTA GONG APRN May 20, 2021 20:40 STEPHANIE RILEY MD May 22, 2021 14:39
[2021-05-20] MEDS ORDERED: CEPHALEXIN 250 MG (KEFLEX) CAP PO SCH (20:45)
--- NOTE | 2021-05-20 20:54 | Diagnostic Imaging Report ---
INDICATION: Thumb laceration. COMPARISON: None available. TECHNIQUE: Three views of the right thumb were obtained with PA view of the right hand. FINDINGS: There is an acute, mildly comminuted fracture of the tuft of the thumb. No malalignment within the thumb. No radiopaque foreign body. 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 IMPRESSION: Acute, mildly comminuted fracture in the tuft of the thumb. Dictated by: Dictated on workstation # [id number]
== END 2021-05-20 21:06 | disposition home or self-care (01) ==
LOC: EDUNIT# 19:03 → ER 19:05
DX: S62.501A Fracture of unspecified phalanx of right thumb, initial encounter for closed fracture (principal); I10 Essential (primary) hypertension; F41.9 Anxiety disorder, unspecified; F32.9 Major depressive disorder, single episode, unspecified; Z23 Encounter for immunization; Z79.899 Other long term (current) drug therapy; W26.8XXA Contact with other sharp object(s), not elsewhere classified, initial encounter
CPT/HCPCS: 73140; 90715

== ENCOUNTER 2021-05-28 11:15 | Emergency (ER) | payer OTHER ==
[~2021-05-28] VITALS: Ht 175 cm; Wt 102.0 kg
[~2021-05-28 11:15] MED LIST changes: +CEPH500T PO
[2021-05-28 11:23] VITALS: BP 136/82
== END 2021-05-28 11:30 | disposition home or self-care (01) ==
LOC: EDUNIT# 11:15 → ER 11:16
DX: Z48.02 Encounter for removal of sutures (principal)

== ENCOUNTER → 2022-10-02 | Outpatient (CLI) | payer OTHER ==
[2022-10-02 11:04] VITALS: BP 128/76
== END ==
LOC: CARD 08:29
PROVIDERS: ATTEND Internal Medicine Cardiovascular Disease
DX: I11.9 Hypertensive heart disease without heart failure (principal); I25.10 Atherosclerotic heart disease of native coronary artery without angina pectoris
CPT/HCPCS: C8929; C8930; 93306

== ENCOUNTER 2023-01-08 05:42 | Outpatient (CLI) | payer OTHER ==
[~2023-01-08] VITALS: Ht 175.3 cm; Wt 100.2 kg
[2023-01-08] MEDS ORDERED: MTP25TSR PO (13:29)
[2023-01-08] MEDS ORDERED: HYDR200T46 PO (13:29)
[2023-01-08] MEDS ORDERED: TRAZ300T3 PO (13:29)
[2023-01-08] MEDS ORDERED: FOLI1TAB33 PO (13:29)
== END 2023-01-08 13:34 | disposition home or self-care (01) ==
LOC: PREOP 05:42
PROVIDERS: ATTEND Surgery
DX: Z01.818 Encounter for other preprocedural examination (principal)

== ENCOUNTER 2023-01-20 06:51 | Day surgery (SDC) | payer OTHER ==
[~2023-01-20] VITALS: Ht 175.3 cm; Wt 100.2 kg
[~2023-01-20 06:51] MED LIST changes: +FOLI1TAB33 PO; +HYDR200T46 PO; +TRAZ300T3 PO
[2023-01-20] MEDS ORDERED: LACTATED RINGERS 1,000 ML IV STA (07:01)
[2023-01-20] MEDS ORDERED: PROPOFOL INJECTION 50 ML IV ONE (07:05)
[2023-01-20] MEDS ORDERED: MIDAZOLAM 2 MG/2 ML (VERSED) VIAL ONE (07:05)
[2023-01-20 07:08] VITALS: BP 142/99
--- NOTE | 2023-01-20 07:14 | Progress Note-Pre Operative ---
Pre-Operative Progress Note Date H&P Reviewed: January 20, 2023 Time H&P Reviewed: 07:13 History & Physical: H&P Reviewed, Patient Examed, No changes noted Pre-Operative Diagnosis: screening colonoscopy YUKI SIERRA DO January 20, 2023 07:14
[2023-01-20 07:40] VITALS: BP 167/107
--- NOTE | 2023-01-20 07:42 | Discharge Inst-Simple/Standard ---
Discharge Inst-Standard Patient Instructions/Follow Up Plan of Care/Instructions/FU: 2 weeks Lindy Activity as Tolerated: Yes Discharge Diet: Regular Diet YUKI SIERRA DO January 20, 2023 07:42
--- NOTE | 2023-01-20 07:44 | Progress Note-Post Operative ---
Post-Operative Progess Note Surgeon (s)/Grain Combiner (s) Surgeon YUKI SIERRA DO Grain Combiner: na Pre-Operative Diagnosis screening colonoscopy Post-Operative Diagnosis rectal mucosal change Procedure & Operative Findings Date of Procedure 01/20/23 Procedure Performed/Findings colonoscopy c hot bx. Anesthesia Type per retail customer service specialist Estimated Blood Loss Estimated blood loss (mL): none Specimens/Packing Specimens Removed rectum YUKI SIERRA DO January 20, 2023 07:43
[2023-01-20 07:45] VITALS: BP 162/99
[2023-01-20] MEDS ORDERED: ONDANSETRON 4 MG/2 ML (SDV) Z0FRAN ONE (07:52)
[2023-01-20] MEDS ORDERED: ONDANSETRON 4 MG/2 ML (SDV) Z0FRAN IVP ONE (08:00)
--- NOTE | 2023-01-20 08:22 | OPERATIVE REPORT ---
DATE OF SERVICE: 01/20/2023 PREOPERATIVE DIAGNOSIS: Screening colonoscopy. POSTOPERATIVE DIAGNOSIS: Rectal mucosal change. PROCEDURE: Colonoscopy with hot biopsy. SURGEON: Yuki Israel DO ANESTHESIA: Per ARMATURE COIL WINDER. ESTIMATED BLOOD LOSS: None. COMPLICATIONS: None. INDICATIONS: The patient is a 47-year-old male, needing screening colonoscopy. He understands risks and benefits of procedure and wished to proceed. Consent was signed in chart. DESCRIPTION OF PROCEDURE: The patient was taken to endoscopy suite, placed in left lateral recumbent position. Timeout was performed. Digital rectal exam was performed. No palpable polyps, masses or ulcerations. Scope was inserted in the rectum and advanced all the way to the cecum with minimal difficulty. Prep was adequate. Scope was slowly retracted back. No polyps, masses or ulcerations within the cecum, ascending, transverse and descending and sigmoid colon. Once in the rectum, slight mucosal change was present. Hot biopsy of this area was obtained. Scope was then continuously retracted back and retroflexed noting no other pathology. Scope was returned to its normal position, slowly withdrawn until completely removed. The patient tolerated the procedure well with no complications, taken to recovery room in stable condition. RECOMMENDATIONS: The patient will need repeat colonoscopy in 10 years unless family history of colon cancer, which will then be 5 years. Also depending on pathology results, would also consider repeat colonoscopy in 5 years. Any changes before that, he will be seen at that time. The patient will follow up in the office to discuss pathology results and plan. Job ID: [id number] DocumentID: [id number] Dictated Date: 01/20/2023 07:45:44 [employer] Teacher Date: 01/20/2023 08:20:00 Dictated By: YUKI ISRAEL DO
[2023-01-20 08:40] VITALS: BP 162/99
--- NOTE | 2023-01-20 12:55 | Anesthesia-General Post-Op ---
MAC Patient Condition Mental Status/LOC: Same as Preop Cardiovascular: Satisfactory Nausea/Vomiting: Absent Respiratory: Satisfactory Pain: Controlled Complications: Absent Post Op Complications Complications None Follow Up Care/Instructions Patient Instructions None needed. Anesthesiology Discharge Order Discharge Order Patient is doing well, no complaints, stable vital signs, no apparent adverse anesthesia problems. No complications reported per nursing. CARLOZ SNELL CRNA January 20, 2023 12:55
== END 2023-01-20 08:43 | disposition home or self-care (01) ==
LOC: ENDO 06:51
PROVIDERS: ATTEND Surgery
DX: Z12.11 Encounter for screening for malignant neoplasm of colon (principal); K62.1 Rectal polyp; Z87.891 Personal history of nicotine dependence

== ENCOUNTER → 2023-08-14 | Outpatient (CLI) | payer OTHER ==
[~2023-08-14] MED LIST changes: +ACET-2650 PO; +AMOX1TAB12 PO; -HYDR200T46 PO; +HYDR200T71 PO; +IBUP-2473 PO; +METH2.5T PO; +METO50TA7 PO; +MULT-851 PO; +OMEG100032 PO; +OXC5T PO; +SERT-414 PO
== END ==
LOC: WOUNDCARE 15:37
PROVIDERS: ATTEND Family Medicine
DX: L02.811 Cutaneous abscess of head [any part, except face] (principal); Z98.818 Other dental procedure status; Z79.69 Long term (current) use of other immunomodulators and immunosuppressants
CPT/HCPCS: 11042; A6212; G0463